=== PATIENT | female | born 1960 | race Caucasian/White ===

== ENCOUNTER 2017-07-03 21:49 | Inpatient (IN) | payer OTHER ==
[~2017-07-03] VITALS: Ht 162.6 cm; Wt 60.6 kg
[2017-07-04 02:02] VITALS: BP 103/60; PULSE 98; TEMP 37.3; O2SAT 95; Ht 162.6 cm; Wt 60.6 kg
[2017-07-04] MEDS ORDERED: BUPR-79 PO (02:10)
[2017-07-04] MEDS ORDERED: SODIUM CHLORIDE 0.9% 1000ML 1,000 ML IV STA (02:21)
[2017-07-04] MEDS ORDERED: MoRPHine SULFATE 2 MG/ML CARP IV PRN (02:30)
[2017-07-04] MEDS ORDERED: ACETAMINOPHEN IV 650 MG in EMPTY BAG 0 ML IV PRN (02:30)
[2017-07-04] MEDS ORDERED: ACETAMINOPHEN 325 MG TAB PO PRN (02:30)
[2017-07-04] MEDS ORDERED: PIPERACILL/TAZOBAC IV 3.375 GM in DEXTROSE 5% 100ML 100 ML IV ONE (02:43)
[2017-07-04] MEDS: KETOROLAC TROMETHAMINE 15 MG/ML VIAL IV PRN ×4 (03:05→23:29)
[2017-07-04 03:14] LABS: BASO % 0.3 %; BASO ABS # 0.04 K/uL (0-0.2); EOS % 0.8 %; HEMATOCRIT 39.5 % (37-47); IG% 0.2 %; LYMPH % 18.1 %; LYMPH ABS # 2.19 K/uL (1.2-3.4); MEAN CELL VOLUME 93.2 fL (80-100); MEAN CORPUSCULAR HEMOGLOBIN 31.6 pg (25-34); MEAN PLATELET VOLUME 10.6 fL (7.4-10.4); MONO % 10.5 %; NEUT % 70.1 %; PLATELET COUNT 245 K/uL (130-400); RED BLOOD COUNT 4.24 M/uL (4.2-5.4); WHITE BLOOD COUNT 12.12 K/uL (4.8-10.8)
--- NOTE | 2017-07-04 03:15 | History and Physical ---
History & Physical Date & Time of Service: Jul 04, 2017 at 02:40 Chief Complaint: Diverticulitis Primary Care Physician: Rohit Hester D.O. History of Present Illness Source: patient, clinic records, hospital records Mrs Michel is a 56 year old female who present as a direct admission from [facility] with a diagnosis of diverticulitis and abdominal pain. She started having abdominal pain 2 weeks prior. She has not eaten significantly for the past 48 hours. She reported having severity 9/10 LLQ pain in the [facility] ER, currently 6/10. She went to her PCP on 16 May and diagnosed clinically with diverticulitis. Due to previously vomiting with cipro and metronidazole she was treated with Keflex. Her abdominal pain did not get better so she presented to the ER [facility]. CT showed extensive active diverticulitis in the sigmoid colon with microperforation and a small amount of free fluid. No localized abscess or generalized pneumoperitoneum seen at this time. CBC showed elevated WBC 12.0. lactic acid was not elevated at 0.8. CMP showed normal electrolytes and Cr 1.1. She was treated with one dose of Zosyn 3.375g. She was transferred to [facility] due to access to surgery. Past Medical/Surgical History Anxiety Hx diverticulitis Past surgical history - hysterectomy Social History Smoking Status: Current Every Day Smoker Smokeless Tobacco Use: No Alcohol Use: occasionally Drug Use: none Immunizations History of Influenza Vaccine: Unknown History of Tetanus Vaccine?: Unknown History of Pneumococcal: Unknown History of Hepatitis B Vaccine: Unknown Multi-Drug Resistant Organisms History of MDRO: No Allergies Coded Allergies: No Known Allergies (Unverified , 07/04/17) Home Medications Miscellaneous Medications Bupropion (Wellbutrin Sr), 150 MG PO Review of Systems Constitutional: + fever, + chills Eyes: No worsening of vision ENT: No hearing loss Respiratory: No cough, No shortness of breath Cardiovascular: No chest pain Abdomen: + pain, No nausea, No vomiting, No diarrhea, No constipation, No GI bleeding Musculoskeletal: No joint pain, No muscle pain Genitourinary - Female: No dysuria, No urinary frequency, No urinary urgency, No urinary incontinence, No urinary retention Psychiatric: No depression symptoms, No anxiety Endocrine: No fatigue Hematologic / Lymphatic: No abnormal bleeding/bruising Integumentary: No rash, No itch Physical Exam Vital Signs Date Time Temp Pulse Resp B/P (MAP) Pulse Ox O2 Delivery O2 Flow Rate FiO2 07/04/17 02:02 37.3 98 103/60 95 Room Air General Appearance: WD/WN, no apparent distress Head: normocephalic, atraumatic Eyes: normal inspection (pupils equal) Neck: supple, no JVD Respiratory/Chest: lungs clear, normal breath sounds, no respiratory distress, no accessory muscle use Cardiovascular: regular rate, rhythm, no JVD, no murmur, normal peripheral pulses Abdomen/GI: normal bowel sounds, soft, + tenderness (mild LLQ pain without guarding or rebound tenderness) Extremities/Musculoskelatal: no calf tenderness, normal capillary refill, no pedal edema 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 (no facial droop), no motor/sensory deficits (grossly), alert, oriented x 3 Skin: normal color, warm/dry, no rash Diagnostics Laboratory Results Na 140, K 3.8, Cl 104, CO2 30, Anion Gap 10, BUN 12, Cr 1.10, BUN/Cr 10.9, Glucose 80, Lactic acid 0.8 Total Bili 1.3 (high), AST,12 ALT 16, ALP 100, Total Protein 7.0, Albumin 3.6, Globulin 3.4, Alb/Luciana 1.1 WBC 12.0 (high), RBC 4.36, Hbg 13.6, Hct 40.1, MCV 92.0, Plt 266 Urine positive for blood (small), protein (trace), WBC, RBC, leukocyte esterase , bacteria, casts, epithelial cells Impression Assessment and Plan 56 year old female with diverticulitis Diverticulitis with microperforations - continue zosyn 3.375g Q6H - stool culture, c. diff - NPO except ice chips - consult surgery in morning - by patient request consult her gastroenterology Dr Clark, to arrange follow up colonoscopy as outpatient - NSS 1L bolus now, then lactated ringers @ 150 MLS/HR - repeat labs - CBC, CMP Anxiety - continue Wellbutrin PO Attending Addendum: I have physically seen and examined this patient, have directed the resident's medical activities, and agree with the H&P as noted above with the following exceptions as noted. The patient is awake, alert and oriented 3, well-developed and well-nourished , normocephalic and atraumatic, lying in bed and in no acute distress. HEENT--PERRL, EOMI, mucous membranes and oropharynx dry. Neck--supple, no JVD or bruits, thyroid normal, trachea midline, no adenopathy. Heart--normal S1 and S2, no extra beats, no murmurs, rubs or gallops. Lungs--clear bilaterally with good air movement, no respiratory distress, no accessory muscle use. Abdomen--decreased bowel sounds. Mildly firm, nontender and nondistended, no hernias or masses, no organomegaly. Extremities--no cyanosis, clubbing or edema. There are good distal pulses b/l. Dermatologic--normal skin turgor, normal color, warm and dry, no abnormal lymph nodes, no rash. Neurologic--cranial nerves II through XII grossly intact. Rheumatologic--normal range of motion. Psychiatric--normal affect. Assessment and Plan: Diverticulitis with microperforation-- Nothing by mouth except ice chips Send stool for culture and C. difficile Zosyn 3.375 mg IV every 6 hours. Famotidine 20 mg IV every 12 hours Zofran 4 mg IV every 6 hours when necessary Consult general surgery to follow. Consult Dr. Clark from gastroenterology and she seen in the past for colonoscopy. IV fluids. Serial CBC and chemistry profile. Anxiety-- Continue Wellbutrin by mouth have available IV Ativan when necessary Level of Care Telemetry Advanced Directives Existing Advance Directive: No Existing Living Will: Yes Existing Power of Nurse Discharge: No Resuscitation Status FULL RESUSCITATION VTE Prophylaxis VTE Risk Assessment Done? Y/N: Yes Risk Level: Moderate Given or contraindicated: T.E.D. Stockings, SCD's, Contraindicated (pending surgical consult) Social Service Consult None Apply Additional Copies To ROHIT HESTER D.O.
[2017-07-04 03:18] LABS: COMPLETE YES; MEAN CORPUSCULAR HGB CONC 33.9 g/dl (32-36)
[2017-07-04 03:37] LABS: BUN/CREATININE RATIO 10.3 (10-20); CALCIUM 8.7 mg/dl (8.5-10.1); CREATININE 1.08 mg/dl (0.60-1.20); POTASSIUM 3.5 mmol/L (3.5-5.1)
[2017-07-04] MEDS ORDERED: PIPERACILL/TAZOBAC CONSULT ACTIVE PRN (04:15)
[2017-07-04 04:26] VITALS: BP 96/54; PULSE 105; TEMP 36.7; O2SAT 96
[2017-07-04] MEDS: LACTATED RINGER'S 1000ML 1,000 ML IV SCH ×4 (04:33→21:17)
[2017-07-04] MEDS ORDERED: FAMOTIDINE IV INJ 20 MG in DEXTROSE 5% 100ML 100 ML IV SCH (06:30)
[2017-07-04] MEDS: FAMOTIDINE IV INJ 20 MG in SYRINGE 3 ML IV SCH ×2 (06:39→18:26)
[2017-07-04] MEDS: DEXTROSE 50% 50 ML SYR IV PRN ×2 (07:10→19:13)
[2017-07-04 07:44] VITALS: BP 111/54; PULSE 91; TEMP 36.8; O2SAT 96
[2017-07-04] MEDS: PIPERACILL/TAZOBAC IV 3.375 GM in DEXTROSE 5% 100ML 100 ML IV SCH ×3 (08:39→23:32)
[2017-07-04] MEDS: BuPROPion SR 150 MG TABCR PO SCH (08:39)
--- NOTE | 2017-07-04 10:34 | Medical Consult ---
Consultation Date of Consultation: Jul 04, 2017. Attending Physician: Jean Chavez D.O. Reason for Consultation: diverticulitis w/ contained perf History of Present Illness pt transferred from [facility] with acute diverticulitis with contained perf - no abscess. has had mult episodes in past , does not tolerate po Cipro/ Flagyl well. Had CT (report here only)- no film- at [facility] No recent colonoscopy wbc- 12,000 pain has improved Social History Smoking Status: Current Every Day Smoker Smokeless Tobacco Use: No Alcohol Use: occasionally Drug Use: none Allergies Coded Allergies: No Known Allergies (Unverified , 07/04/17) Current Inpatient Medications Current Inpatient Medications Medications (Trade) Dose Ordered Sig/Melvina Route Start Time Stop Time Status Last Admin Dose Admin Acetaminophen (Tylenol Tab) 650 mg Q4H PRN PO 07/04/17 02:30 08/03/17 02:29 Ondansetron HCl (Zofran Inj) 4 mg Q6H PRN IV 07/04/17 02:30 08/03/17 02:29 Bupropion HCl (Wellbutrin-Sr Tab) 150 mg DAILY PO 07/04/17 09:00 08/03/17 08:59 07/04/17 08:39 150 MG Acetaminophen 650 mg/Empty Bag 65 ml @ 260 mls/hr Q6H PRN IV 07/04/17 02:30 08/03/17 02:29 Morphine Sulfate (MoRPHine SULFATE INJ) 2 mg Q2H PRN IV 07/04/17 02:30 07/18/17 02:29 Ketorolac Tromethamine (Toradol Inj) 15 mg Q6H PRN IV 07/04/17 02:30 07/09/17 02:29 07/04/17 10:03 15 MG Piperacillin Sod/ Tazobactam Sod 3.375 gm/Dextrose 115 ml @ 28 mls/hr Q8H IV 07/04/17 08:00 07/14/17 07:59 07/04/17 08:39 28 MLS/HR Lactated Ringer's 1,000 ml @ 150 mls/hr Q6H40M IV 07/04/17 03:30 08/03/17 03:29 07/04/17 04:33 150 MLS/HR Piperacillin Sod/ Tazobactam Sod (Consult) 1 ea UD PRN N/A 07/04/17 04:15 08/03/17 04:14 Famotidine 20 mg/ Syringe 5 ml @ 2.5 mls/min Q12H IV 07/04/17 06:30 08/03/17 06:29 07/04/17 06:39 2.5 MLS/MIN Dextrose (Dextrose 50% 50ML Syringe) 25-50ML OF 50% DW IV FOR... UD PRN IV 07/04/17 07:00 08/03/17 06:59 07/04/17 07:10 25 ML Review of Systems Constitutional: No fever, No chills Respiratory: No cough, No sputum, No shortness of breath Cardiovascular: No chest pain Abdomen: + pain, No vomiting Genitourinary - Female: No dysuria Integumentary: No rash Physical Exam Date Time Temp Pulse Resp B/P (MAP) Pulse Ox O2 Delivery O2 Flow Rate FiO2 07/04/17 08:00 Room Air 07/04/17 07:44 36.8 91 18 111/54 (73) 96 Room Air 07/04/17 04:26 36.7 105 17 96/54 (68) 96 Room Air 07/04/17 04:00 Room Air 07/04/17 02:02 37.3 98 103/60 95 Room Air General Appearance: no apparent distress Head: normocephalic, atraumatic ENT: hearing grossly normal Neck: supple Respiratory/Chest: no respiratory distress Abdomen/GI: soft, + tenderness (LLQ tenderness, has bowel sounds) Extremities/Musculoskelatal: normal inspection Neurologic/Psych: alert Skin: warm/dry Laboratory Results Last 24 Hours Test 07/04/17 03:02 07/04/17 07:18 White Blood Count 12.12 K/uL Red Blood Count 4.24 M/uL Hemoglobin 13.4 g/dL Hematocrit 39.5 % Mean Corpuscular Volume 93.2 fL Mean Corpuscular Hemoglobin 31.6 pg Mean Corpuscular Hemoglobin Concent 33.9 g/dl Platelet Count 245 K/uL Mean Platelet Volume 10.6 fL Neutrophils (%) (Auto) 70.1 % Lymphocytes (%) (Auto) 18.1 % Monocytes (%) (Auto) 10.5 % Eosinophils (%) (Auto) 0.8 % Basophils (%) (Auto) 0.3 % Neutrophils # (Auto) 8.49 K/uL Lymphocytes # (Auto) 2.19 K/uL Monocytes # (Auto) 1.27 K/uL Eosinophils # (Auto) 0.10 K/uL Basophils # (Auto) 0.04 K/uL RDW Standard Deviation 45.5 fL RDW Coefficient of Variation 13.4 % Immature Granulocyte % (Auto) 0.2 % Immature Granulocyte # (Auto) 0.03 K/uL Sodium Level 141 mmol/L Potassium Level 3.5 mmol/L Chloride Level 105 mmol/L Carbon Dioxide Level 25 mmol/L Anion Gap 11.0 mmol/L Blood Urea Nitrogen 11 mg/dl Creatinine 1.08 mg/dl Est Creatinine Clear Calc Drug Dose 50.3 ml/min Estimated GFR () 66.5 Estimated GFR (Non- 57.3 BUN/Creatinine Ratio 10.3 Random Glucose 63 mg/dl Calcium Level 8.7 mg/dl Total Bilirubin 1.5 mg/dl Aspartate Amino Transf (AST/SGOT) 9 U/L Alanine Aminotransferase (ALT/SGPT) 14 U/L Alkaline Phosphatase 95 U/L Total Protein 6.8 gm/dl Albumin 3.4 gm/dl Globulin 3.4 gm/dl Albumin/Globulin Ratio 1.0 Bedside Glucose 145 mg/dl Assessment & Plan 07/04/17- adm with acute diverticulitis w/ contained perf, no abscess- cont ice only for now and IV atbx. Repeat CT at some point 2-3 days- try to obtain other film. May consider picc line for IV atbx as outpt as she doesn't tolerate po well. Probably best-4-5 days IV atbx in hospital.
--- NOTE | 2017-07-04 10:35 | Gastrointestinal Consultation ---
Gastrointestinal Consultation Date of Consultation: Jul 04, 2017 Attending Physician: Grady Chavez Consulting Physician: Jayme Clark Reason for Consultation: Diverticulitis History of Present Illness Patient is a 56 year old female who was transferred from [facility] for continued management of diverticulitis. She had been c/o abd pain across her lower abd since 06/16, suspected to have diverticulitis and was given Cipro/ Flagyl by PCP. Her pain didn't improve and also was having n/v from the antibx ( later switched to Keflex), she went to [facility]. CT abd/pelvis showed acute sigmoid diverticulitis w microperforation and small amt of free fluid, no abscess seen. She was transferred to [facility] as she needed Surgery team support. Labs showed WBC 12, otherwise normal CBC, CMP. LFT did showed mild Tbili elevation of 1.2, normal transaminases otherwise. She is made NPO except sips and chips. She has been started on Zosyn IV, and LR IVF. Pt reports about 6 episodes of diverticulitis since around 2009. Less than 3 episodes in last year. Last colonoscopy and f/u by Dr. Clark in 2011, + diverticulosis and adenomatous polyps. She had been taking probiotics, fiber and avoiding constipation. She is afebrile overnight, abd pain is improved, no n/v. Past Medical/Surgical History Past Medical History: See above Past Surgical History: Hysterectomy Appendectomy Family History Unrelated to admission Social History Smoking Status: Current Every Day Smoker Alcohol Use: none Drug Use: none Allergies Coded Allergies: No Known Allergies (Unverified , 07/04/17) Current Medications Home Meds and Scripts Medications Dose Route/Sig Max Daily Dose Days Date Category Wellbutrin Sr (Bupropion HCl) 150 Mg Ertab 150 Mg PO 07/04/17 Reported Review of Systems Constitutional: No fever, No chills Respiratory: No cough, No shortness of breath Cardiac: No chest pain Abdomen: + pain (across lower abd ), No nausea, No vomiting, No constipation, No GI bleeding Physical Exam Date Time Temp Pulse Resp B/P (MAP) Pulse Ox O2 Delivery O2 Flow Rate FiO2 07/04/17 08:00 Room Air 07/04/17 07:44 36.8 91 18 111/54 (73) 96 Room Air 07/04/17 04:26 36.7 105 17 96/54 (68) 96 Room Air 07/04/17 04:00 Room Air 07/04/17 02:02 37.3 98 103/60 95 Room Air General Appearance: WD/WN, no apparent distress Eyes: normal inspection, PERRL, EOMI Neck: supple, no JVD, trachea midline Respiratory/Chest: normal breath sounds, no respiratory distress, no accessory muscle use Cardiovascular: regular rate, rhythm, no gallop, no murmur Abdomen: normal bowel sounds, soft, + tenderness (across lower abd ) Extremities: normal inspection, no pedal edema, no calf tenderness Neurologic/Psych: alert, normal mood/affect, oriented x 3 Skin: normal color, no jaundice, no rash Laboratory Results Last 24 Hours Test 07/04/17 03:02 07/04/17 07:18 White Blood Count 12.12 K/uL Red Blood Count 4.24 M/uL Hemoglobin 13.4 g/dL Hematocrit 39.5 % Mean Corpuscular Volume 93.2 fL Mean Corpuscular Hemoglobin 31.6 pg Mean Corpuscular Hemoglobin Concent 33.9 g/dl Platelet Count 245 K/uL Mean Platelet Volume 10.6 fL Neutrophils (%) (Auto) 70.1 % Lymphocytes (%) (Auto) 18.1 % Monocytes (%) (Auto) 10.5 % Eosinophils (%) (Auto) 0.8 % Basophils (%) (Auto) 0.3 % Neutrophils # (Auto) 8.49 K/uL Lymphocytes # (Auto) 2.19 K/uL Monocytes # (Auto) 1.27 K/uL Eosinophils # (Auto) 0.10 K/uL Basophils # (Auto) 0.04 K/uL RDW Standard Deviation 45.5 fL RDW Coefficient of Variation 13.4 % Immature Granulocyte % (Auto) 0.2 % Immature Granulocyte # (Auto) 0.03 K/uL Sodium Level 141 mmol/L Potassium Level 3.5 mmol/L Chloride Level 105 mmol/L Carbon Dioxide Level 25 mmol/L Anion Gap 11.0 mmol/L Blood Urea Nitrogen 11 mg/dl Creatinine 1.08 mg/dl Est Creatinine Clear Calc Drug Dose 50.3 ml/min Estimated GFR () 66.5 Estimated GFR (Non- 57.3 BUN/Creatinine Ratio 10.3 Random Glucose 63 mg/dl Calcium Level 8.7 mg/dl Total Bilirubin 1.5 mg/dl Aspartate Amino Transf (AST/SGOT) 9 U/L Alanine Aminotransferase (ALT/SGPT) 14 U/L Alkaline Phosphatase 95 U/L Total Protein 6.8 gm/dl Albumin 3.4 gm/dl Globulin 3.4 gm/dl Albumin/Globulin Ratio 1.0 Bedside Glucose 145 mg/dl Impression Patient is a 56 year old female transferred from [facility] for sigmoid diverticulitis with evidence of microperforation but no abscess on CT scan. WBC mildly up at 12K. Currently on Zosyn IV. Plan - Bowel rest, IVF support - Surgery consulted - May repeat CT scan in about 2 days time to re-eval microperforation. - GI will watch peripherally, call if new questions/concerns arise. - I made pt aware that [facility] doesn't accept [facility] insurance. Thus she will need to pay out of pocket costs if she chooses to still follow up with [facility] upon her DC and for future repeat colonoscopy. She has the options to f/u with [facility] or [facility] which accept her insurance. She would like to stay with [facility]. I have personally seen and examined patient with MOI Posey. Her note reflects my exam and findings. I agree with her impression and plan. She has had several bouts of diverticulitis and should consider surgical options once she is over this acute bout given her high risk of recurrent disease. This was discussed with daughter at bedside as well. Jayme Clark M.D.
[2017-07-04 11:36] VITALS: BP 106/63; PULSE 86; TEMP 36.6; O2SAT 96
[2017-07-04 15:55] VITALS: BP 117/72; PULSE 85; TEMP 36.4; O2SAT 97
[2017-07-04] MEDS: ONDANSETRON INJ 2 MG/ML 2 ML VIAL IV PRN (17:28)
[2017-07-04 23:45] VITALS: BP 104/66; PULSE 82; TEMP 36.8; O2SAT 97
[2017-07-05] VITALS: O2SAT 95
[2017-07-05] MEDS: DEXTROSE 5% 1000ML 1,000 ML IV SCH ×3 (00:40→16:30)
[2017-07-05] MEDS: FAMOTIDINE IV INJ 20 MG in SYRINGE 3 ML IV SCH (06:10)
[2017-07-05] MEDS ORDERED: MoRPHine SULFATE 2 MG/ML CARP IV PRN ×2 (06:15)
--- NOTE | 2017-07-05 06:16 | Surgery Progress Note ---
Surgery Progress Note Date of Service Jul 05, 2017. Subjective feeling better, wants less pain meds afeb, labs pending Objective Vital Signs: Date Time Temp Pulse Resp B/P (MAP) Pulse Ox O2 Delivery O2 Flow Rate FiO2 07/05/17 00:00 95 Room Air 07/04/17 23:45 36.8 82 18 104/66 (79) 97 Room Air 07/04/17 16:00 Room Air 07/04/17 15:55 36.4 85 18 117/72 (87) 97 Room Air 07/04/17 11:36 36.6 86 16 106/63 (77) 96 Room Air 07/04/17 08:00 Room Air 07/04/17 07:44 36.8 91 18 111/54 (73) 96 Room Air General Appearance: no apparent distress Respiratory/Chest: no respiratory distress Abdomen: normal bowel sounds, soft Laboratory Results: Results Past 24 Hours Test 07/04/17 06:56 07/04/17 07:18 07/04/17 11:25 07/04/17 18:26 Range/Units Bedside Glucose 58 145 75 64 70-90 mg/dl Test 07/04/17 19:28 07/04/17 23:55 07/05/17 05:36 07/05/17 05:57 Range/Units Bedside Glucose 163 70 94 70-90 mg/dl Assessment & Plan 07/05/17- improved- do not have film to assess severity of disease- will order CT this am. Cont limited po and IV atbx. may have sips. Will ask ID for suggestions re atbx- depending on severity of perf- may consider picc/ home IV atbx- pt stable
[2017-07-05] MEDS ORDERED: OPTIRAY 320 IV PRN (06:30)
[2017-07-05 06:55] LABS: HEMATOCRIT 34.2 % (37-47); MEAN CELL VOLUME 92.2 fL (80-100); MEAN CORPUSCULAR HEMOGLOBIN 31.8 pg (25-34); MEAN CORPUSCULAR HGB CONC 34.5 g/dl (32-36); MEAN PLATELET VOLUME 10.2 fL (7.4-10.4); PLATELET COUNT 219 K/uL (130-400); RED BLOOD COUNT 3.71 M/uL (4.2-5.4); WHITE BLOOD COUNT 7.07 K/uL (4.8-10.8)
[2017-07-05 07:27] LABS: BUN/CREATININE RATIO 7.5 (10-20); CALCIUM 8.5 mg/dl (8.5-10.1); CREATININE 0.84 mg/dl (0.60-1.20); POTASSIUM 3.4 mmol/L (3.5-5.1)
[2017-07-05 07:51] VITALS: BP 110/61; PULSE 75; TEMP 36.6; O2SAT 94
[2017-07-05] MEDS ORDERED: POTASSIUM CHLORIDE 10 MEQ TABCR PO STA (08:41)
[2017-07-05] MEDS: BuPROPion SR 150 MG TABCR PO SCH (08:45)
[2017-07-05] MEDS: PIPERACILL/TAZOBAC IV 3.375 GM in DEXTROSE 5% 100ML 100 ML IV SCH ×3 (08:48→23:56)
[2017-07-05 10:17] VITALS: O2SAT 94
--- NOTE | 2017-07-05 10:38 | DIAGNOSTIC IMAGING REPORT ---
ADDENDUM Addendum: Comparison was made to prior outside CT of July 03, 2017. No significant change is noted. Sigmoid diverticulosis with sigmoid colon wall thickening and a small amount of adjacent fluid is unchanged. The findings suggest acute diverticulitis. Electronically signed by: Robert Small M.D. 07/07/2017 3:56 PM Dictated Date/Time: 07/07/2017 3:[address] OF THE ABDOMEN AND PELVIS WITH CONTRAST CLINICAL HISTORY: Diverticulitis. COMPARISON STUDY: None. TECHNIQUE: Following IV administration of 94 mL of Optiray-320, axial images of the abdomen and pelvis were obtained from the lung bases to the proximal femurs. Images were reviewed in the axial, sagittal, and coronal planes. IV contrast was administered without complication. A dose lowering technique was utilized adhering to the principles of ALARA. CT DOSE: 267.77 mGy.cm FINDINGS: No pneumatosis, free air or portal venous gas is present. Several hepatic cysts are noted. There are several subcentimeter renal lesions which are too small to characterize. The spleen, adrenal glands and pancreas are normal. There is no biliary or pancreatic ductal dilatation. There is mild gallbladder distention without pericholecystic infiltration. No enlarged abdominal or pelvic lymph nodes are present. The appendix is not visualized. There is sigmoid diverticulosis. There is mild infiltration adjacent to the proximal to mid sigmoid colon with a small amount of fluid along the posterior aspect of the mid sigmoid colon. No rim enhancement of this fluid is noted to strongly suggest an abscess at this time. There is no bowel obstruction. No suspicious osseous lesions are identified. Major vasculature of the abdomen and pelvis is patent. IMPRESSION: Sigmoid diverticulosis with mild wall thickening and infiltration adjacent to the proximal to mid sigmoid colon consistent with acute diverticulitis. No free air or abscess. Small amount of fluid along the posterior aspect of the colon without rim enhancement to suggest an abscess at this time. Electronically signed by: Robert Small M.D. 07/05/2017 10:37 AM Dictated Date/Time: 07/05/2017 10:27 AM
--- NOTE | 2017-07-05 11:07 | Medical Consult ---
Consultation Date of Consultation: Jul 05, 2017. Attending Physician: Jean Chavez D.O. Reason for Consultation: Antibiotic choices History of Present Illness 56-year-old female with history of multiple episodes of diverticulitis in the past, was admitted to the hospital with progressively worsening left lower quadrant pain over 2 week period of time. She was found to have evidence of recurrent diverticulitis with microperforation. She was transferred here for further management. Patient currently being treated with IV Zosyn and showing clinical improvement. She has remained afebrile. Repeat CT scan of the abdomen is pending. Blood cultures have been no growth to date. Has been tolerating antibiotic without apparent difficulty. Past Medical/Surgical History Past medical history: Diverticulitis, anxiety Past surgical history: Hysterectomy Family History Noncontributory Social History Smoking Status: Current Every Day Smoker Smokeless Tobacco Use: No Alcohol Use: occasionally Drug Use: none Allergies Coded Allergies: No Known Allergies (Unverified , 07/04/17) Current Inpatient Medications Current Inpatient Medications Medications (Trade) Dose Ordered Sig/Melvina Route Start Time Stop Time Status Last Admin Dose Admin Acetaminophen (Tylenol Tab) 650 mg Q4H PRN PO 07/04/17 02:30 08/03/17 02:29 07/05/17 08:21 650 MG Ondansetron HCl (Zofran Inj) 4 mg Q6H PRN IV 07/04/17 02:30 08/03/17 02:29 07/04/17 17:28 4 MG Bupropion HCl (Wellbutrin-Sr Tab) 150 mg DAILY PO 07/04/17 09:00 08/03/17 08:59 07/05/17 08:45 150 MG Acetaminophen 650 mg/Empty Bag 65 ml @ 260 mls/hr Q6H PRN IV 07/04/17 02:30 08/03/17 02:29 Ketorolac Tromethamine (Toradol Inj) 15 mg Q6H PRN IV 07/04/17 02:30 07/09/17 02:29 07/04/17 23:29 15 MG Piperacillin Sod/ Tazobactam Sod 3.375 gm/Dextrose 115 ml @ 28 mls/hr Q8H IV 07/04/17 08:00 07/14/17 07:59 07/05/17 08:48 28 MLS/HR Piperacillin Sod/ Tazobactam Sod (Consult) 1 ea UD PRN N/A 07/04/17 04:15 08/03/17 04:14 Famotidine 20 mg/ Syringe 5 ml @ 2.5 mls/min Q12H IV 07/04/17 06:30 08/03/17 06:29 07/05/17 06:10 2.5 MLS/MIN Dextrose (Dextrose 50% 50ML Syringe) 25-50ML OF 50% DW IV FOR... UD PRN IV 07/04/17 07:00 08/03/17 06:59 07/04/17 19:13 25 ML Dextrose 1,000 ml @ 125 mls/hr Q8H IV 07/05/17 00:30 08/04/17 00:29 07/05/17 08:48 125 MLS/HR Morphine Sulfate (MoRPHine SULFATE INJ) 2 mg Q4H PRN IV 07/05/17 06:15 07/19/17 06:14 Morphine Sulfate (MoRPHine SULFATE INJ) 1 mg Q3HWA PRN IV 07/05/17 06:15 07/19/17 06:14 Ioversol (Optiray 320) 100 ml UD PRN IV 07/05/17 06:30 07/09/17 06:29 Review of Systems Systems were reviewed and are negative except as per HPI Physical Exam Date Time Temp Pulse Resp B/P (MAP) Pulse Ox O2 Delivery O2 Flow Rate FiO2 07/05/17 10:17 94 Room Air 07/05/17 07:51 36.6 75 16 110/61 (77) 94 Room Air 07/05/17 00:00 95 Room Air 07/04/17 23:45 36.8 82 18 104/66 (79) 97 Room Air 07/04/17 16:00 Room Air 07/04/17 15:55 36.4 85 18 117/72 (87) 97 Room Air 07/04/17 11:36 36.6 86 16 106/63 (77) 96 Room Air General Appearance: WD/WN, no apparent distress Head: normocephalic, atraumatic Eyes: normal inspection, PERRL, sclerae normal ENT: normal ENT inspection, hearing grossly normal, pharynx normal Neck: supple, no adenopathy, thyroid normal, trachea midline Respiratory/Chest: chest non-tender, lungs clear, normal breath sounds, no respiratory distress Cardiovascular: regular rate, rhythm, no gallop, no murmur Abdomen/GI: normal bowel sounds, soft, no organomegaly, + tenderness (Mild left lower quadrant) Back: normal inspection, no CVA tenderness Extremities/Musculoskelatal: no calf tenderness, non-tender Neurologic/Psych: alert, normal mood/affect, oriented x 3 Skin: normal color, warm/dry, no rash Lymphatic: no adenopathy Laboratory Results RUN DATE: 07/05/17 [facility] LAB PAGE 1 RUN TIME: 708 Specimen Inquiry PATIENT: DUYEN BOURGEOIS LOC: C.MS2W U # : [id number] AGE/SX: 56/F ROOM: W261 REG : 07/04/[address]: Jean Chavez D.O : 1960 BED: 1 DIS : STATUS: ADM IN TLOC: SPEC #: [id number] GRADY: 07/04/17 STATUS: RES REQ #: [id number] RECD: 07/04/[address]: Song Wade MD SOURCE: BLOOD ENTR: 07/04/17 [facility] DR: Chiki Valle M.D. [facility] PILY [facility] D.[facility]., Rick D M.D. Schneider, Donald S., MD ORDERED: BLOOD CULTURE Procedure Result Verified Site BLD CULT Preliminary 07/05/17 NO GROWTH TO DATE. Last 24 Hours Test 07/04/17 11:25 07/04/17 18:26 07/04/17 19:28 07/04/17 23:55 Bedside Glucose 75 mg/dl 64 mg/dl 163 mg/dl 70 mg/dl Test 07/05/17 05:36 07/05/17 06:24 Bedside Glucose 94 mg/dl White Blood Count 7.07 K/uL Red Blood Count 3.71 M/uL Hemoglobin 11.8 g/dL Hematocrit 34.2 % Mean Corpuscular Volume 92.2 fL Mean Corpuscular Hemoglobin 31.8 pg Mean Corpuscular Hemoglobin Concent 34.5 g/dl RDW Standard Deviation 43.5 fL RDW Coefficient of Variation 12.8 % Platelet Count 219 K/uL Mean Platelet Volume 10.2 fL Sodium Level 144 mmol/L Potassium Level 3.4 mmol/L Chloride Level 108 mmol/L Carbon Dioxide Level 30 mmol/L Anion Gap 6.0 mmol/L Blood Urea Nitrogen 6 mg/dl Creatinine 0.84 mg/dl Est Creatinine Clear Calc Drug Dose 64.6 ml/min Estimated GFR () 90.0 Estimated GFR (Non- 77.7 BUN/Creatinine Ratio 7.5 Random Glucose 87 mg/dl Calcium Level 8.5 mg/dl Assessment & Plan Recurrent sigmoid diverticulitis, responding to IV antibiotics. Given multiple recurrences, would think that surgical resection would be appropriate in the future. I would recommend continuing IV antibiotics for at least 7-10 day course total, but could changed to IV ertapenem to allow easier outpatient therapy. Will discuss with all involved. Will follow.
[2017-07-05] MEDS: ONDANSETRON INJ 2 MG/ML 2 ML VIAL IV PRN (14:00)
--- NOTE | 2017-07-05 14:44 | Progress Note ---
Subjective Date of Service: Jul 05, 2017. Subjective Pt evaluation today including: conversation w/ patient, physical exam, chart review, lab review, review of studies, review of inpatient medication list Pt reports pain in left lower quadrant improved 3/10 No nausea or vomiting Currently NPO at this time No acute events overnight Review of Systems Constitutional: No fever, No chills, No sweats, No weakness Eyes: No worsening of vision, No eye pain, No redness, No discharge Respiratory: No cough, No sputum, No wheezing, No shortness of breath, No dyspnea on exertion Cardiac: No chest pain, No orthopnea, No PND, No edema, No claudication Abdomen: No pain, No nausea, No vomiting, No diarrhea, No constipation Musculoskeletal: No joint pain, No muscle pain, No swelling, No calf pain Female : No dysuria, No urinary frequency, No hematuria, No incontinence Neurologic: No memory loss, No paralysis, No weakness, No numbness/tingling Psychiatric: No depression symptoms, No anhedonism, No anxiety, No insomnia Endo: No fatigue, No excessive thirst, No excessive urination Skin: No rash, No itch Objective Vital Signs Date Time Temp Pulse Resp B/P (MAP) Pulse Ox O2 Delivery O2 Flow Rate FiO2 07/05/17 10:17 94 Room Air 07/05/17 07:51 36.6 75 16 110/61 (77) 94 Room Air 07/05/17 00:00 95 Room Air 07/04/17 23:45 36.8 82 18 104/66 (79) 97 Room Air 07/04/17 16:00 Room Air 07/04/17 15:55 36.4 85 18 117/72 (87) 97 Room Air Physical Exam General Appearance: WD/WN, no apparent distress Eyes: normal inspection, PERRL, EOMI, sclerae normal Neck: supple, no adenopathy, thyroid normal, no JVD Respiratory/Chest: chest non-tender, lungs clear, normal breath sounds, no respiratory distress Cardiovascular: no edema, no gallop, no JVD, no murmur Abdomen: normal bowel sounds, soft, no organomegaly, + tenderness (left lower quadrant ) Extremities: normal range of motion, non-tender, normal inspection, no pedal edema Neurologic/Psychiatric: no motor/sensory deficits, alert, normal mood/affect, oriented x 3 Skin: normal color, warm/dry, no rash Lymphatic: no adenopathy Laboratory Results Last 24 Hours Test 07/04/17 18:26 07/04/17 19:28 07/04/17 23:55 07/05/17 05:36 Bedside Glucose 64 mg/dl 163 mg/dl 70 mg/dl 94 mg/dl Test 07/05/17 06:24 White Blood Count 7.07 K/uL Red Blood Count 3.71 M/uL Hemoglobin 11.8 g/dL Hematocrit 34.2 % Mean Corpuscular Volume 92.2 fL Mean Corpuscular Hemoglobin 31.8 pg Mean Corpuscular Hemoglobin Concent 34.5 g/dl RDW Standard Deviation 43.5 fL RDW Coefficient of Variation 12.8 % Platelet Count 219 K/uL Mean Platelet Volume 10.2 fL Sodium Level 144 mmol/L Potassium Level 3.4 mmol/L Chloride Level 108 mmol/L Carbon Dioxide Level 30 mmol/L Anion Gap 6.0 mmol/L Blood Urea Nitrogen 6 mg/dl Creatinine 0.84 mg/dl Est Creatinine Clear Calc Drug Dose 64.6 ml/min Estimated GFR () 90.0 Estimated GFR (Non- 77.7 BUN/Creatinine Ratio 7.5 Random Glucose 87 mg/dl Calcium Level 8.5 mg/dl Assessment and Plan 56 year old female with diverticulitis Diverticulitis with microperforations - continue zosyn 3.375g Q6H - Blood cx NGTD - NPO except ice chips - consult surgery, CT abd pelvis 07/05 no evidence of free air, likely small fluid collection, ?abscess - by patient request consult her gastroenterology Dr Clark, to arrange follow up colonoscopy as outpatient - Cont IVF - repeat labs - CBC, CMP, no leukocytosis or fevers noted Anxiety - continue Wellbutrin PO Hypokalemia - Replace PRN
[2017-07-05 15:17] VITALS: BP 116/76; PULSE 72; TEMP 36.4; O2SAT 98
[2017-07-05 18:00] VITALS: O2SAT 98
[2017-07-05] MEDS: FAMOTIDINE 20 MG TAB PO SCH (19:35)
[2017-07-05] MEDS: KETOROLAC TROMETHAMINE 15 MG/ML VIAL IV PRN (19:36)
[2017-07-05 23:30] VITALS: BP 99/62; PULSE 70; TEMP 36.7; O2SAT 99
[2017-07-06] MEDS: DEXTROSE 5% 1000ML 1,000 ML IV SCH ×2 (00:01→07:53)
--- NOTE | 2017-07-06 06:44 | Surgery Progress Note ---
Surgery Progress Note Date of Service Jul 06, 2017. Subjective feels ok, some mild pain Objective Vital Signs: Date Time Temp Pulse Resp B/P (MAP) Pulse Ox O2 Delivery O2 Flow Rate FiO2 07/06/17 00:00 Room Air 07/05/17 23:30 36.7 70 16 99/62 (74) 99 Room Air 07/05/17 20:00 Room Air 07/05/17 18:00 98 Room Air 07/05/17 15:17 36.4 72 18 116/76 (89) 98 Room Air 07/05/17 10:17 94 Room Air 07/05/17 07:51 36.6 75 16 110/61 (77) 94 Room Air General Appearance: no apparent distress Respiratory/Chest: no respiratory distress Abdomen: soft Laboratory Results: Results Past 24 Hours Test 07/05/17 11:35 07/06/17 00:23 07/06/17 06:02 Range/Units Bedside Glucose 119 129 114 70-90 mg/dl Assessment & Plan 07/06/17- no acute chgs- will try clear liquids- adv very slowly. picc ordered, consent signed- IV atbx in hospital 2-3 more days then at home ,probably 2 weeks total- colonoscopy 4-6 weeks should have colectomy in future 07/05/17- improved- do not have film to assess severity of disease- will order CT this am. Cont limited po and IV atbx. may have sips. Will ask ID for suggestions re atbx- depending on severity of perf- may consider picc/ home IV atbx- pt stable 07/05/17- improved- do not have film to assess severity of disease- will order CT this am. Cont limited po and IV atbx. may have sips. Will ask ID for suggestions re atbx- depending on severity of perf- may consider picc/ home IV atbx- pt stable
[2017-07-06] MEDS ORDERED: LORAZEPAM INJ 0.5 MG in SYRINGE 0.25 ML IV PRN (06:45)
[2017-07-06 06:55] VITALS: BP 114/76; PULSE 65; TEMP 36.1; O2SAT 97
[2017-07-06] MEDS: BuPROPion SR 150 MG TABCR PO SCH (07:50)
[2017-07-06] MEDS: FAMOTIDINE 20 MG TAB PO SCH ×2 (07:50→21:16)
[2017-07-06] MEDS: PIPERACILL/TAZOBAC IV 3.375 GM in DEXTROSE 5% 100ML 100 ML IV SCH (07:53)
[2017-07-06 10:00] VITALS: O2SAT 97
--- NOTE | 2017-07-06 13:24 | Progress Note ---
Subjective Date of Service: Jul 06, 2017. Subjective Pt evaluation today including: conversation w/ patient, conversation w/ family Pt is feeling overall much improved. She had her PICC placed earlier today and did well with that. She has not had abd pain today. She did have mild nausea. She did a few bites of clears and no issues, but her appetite is overall low. Has been OOB and walking without issue. Pt denies fever, SOB, chest pain, v/c /d, LE pain or swelling. Pt is concerned regarding her probiotic use. She states that she was off of her probiotics for about a month after running out and not making the time to replace them. She states when she has been off of probiotics in the past, this is when she is has had GI issues. She asked surgery about this earlier today and was told this would cause a fungal infection in her PICC if resumed. She is concerned that being off of the probiotics is what caused her diverticulitis flare in general, but is even more concerned to not have a probiotic during the use of prolonged abx due to risk of cdiff and with her other abd issues. Review of Systems All Other Systems: Reviewed and Negative Objective Vital Signs Date Time Temp Pulse Resp B/P (MAP) Pulse Ox O2 Delivery O2 Flow Rate FiO2 07/06/17 10:00 97 Room Air 07/06/17 06:55 36.1 65 18 114/76 (89) 97 Room Air 07/06/17 00:00 Room Air 07/05/17 23:30 36.7 70 16 99/62 (74) 99 Room Air 07/05/17 20:00 Room Air 07/05/17 18:00 98 Room Air 07/05/17 15:17 36.4 72 18 116/76 (89) 98 Room Air Physical Exam General Appearance: WD/WN, no apparent distress Eyes: normal inspection, EOMI ENT: hearing grossly normal Neck: supple Respiratory/Chest: normal breath sounds, no respiratory distress Cardiovascular: regular rate, rhythm, no edema Abdomen: non tender, soft Extremities: non-tender, no pedal edema Neurologic/Psychiatric: alert, normal mood/affect, oriented x 3 Skin: normal color, warm/dry Laboratory Results Last 24 Hours Test 07/06/17 00:23 07/06/17 06:02 Bedside Glucose 129 mg/dl 114 mg/dl Assessment and Plan 56 year old female with diverticulitis Diverticulitis with microperforations - zosyn 3.375g Q6H -> ertapenem for ease of dosing on d/c, planning for minimum 7-10days per ID PICC placed 07/06 - Blood cx NGTD - Attempting clears today and advancing slowly - consult surgery, CT abd pelvis 07/05 no evidence of free air, likely small fluid collection, ?abscess - by patient request consult her gastroenterology Dr Clark, to arrange follow up colonoscopy as outpatient - Cont IVF - repeat labs - CBC, CMP, no leukocytosis or fevers noted Adviced pt that she should not take S boullardi for concern regarding PICC fungal infections, however other probiotics are safe in this situation and would likely benefit pt. Will discuss with surgery Anxiety - continue Wellbutrin PO Hypokalemia - Replace PRN
[2017-07-06] MEDS: ERTAPENEM IV 1 GM in SODIUM CHLOR 0.9% AD-VAN 50ML 50 ML IV SCH (13:57)
[2017-07-06 15:00] VITALS: BP 98/64; PULSE 79; TEMP 36.6; O2SAT 98
[2017-07-06 15:30] VITALS: O2SAT 98
[2017-07-06] MEDS ORDERED: NURSING VERBAL MED ORDER ONE (15:30)
[2017-07-06] MEDS: ONDANSETRON INJ 2 MG/ML 2 ML VIAL IV PRN (15:36)
[2017-07-07 00:03] VITALS: BP 109/64; PULSE 68; TEMP 36.7; O2SAT 96
[2017-07-07 06:50] LABS: CREATININE 0.93 mg/dl (0.60-1.20)
[2017-07-07 07:03] VITALS: BP 107/66; PULSE 72; TEMP 36.7; O2SAT 96
[2017-07-07] MEDS: FAMOTIDINE 20 MG TAB PO SCH ×2 (08:11→21:06)
[2017-07-07] MEDS: BuPROPion SR 150 MG TABCR PO SCH (08:12)
--- NOTE | 2017-07-07 11:19 | Progress Note ---
Subjective Date of Service: Jul 07, 2017. Subjective Pt evaluation today including: conversation w/ patient Pt continues to do well. Still ambulating without issue. No bowel movement "but it feels like it is there". She tolerated clears all day yesterday. She did not eat this AM, but only due to the clears tray not looking overly appealing to her. She thinks she would have eaten something else. No abd pain. Pt denies fever, SOB, chest pain, n/v/c/d, LE pain or swelling. Review of Systems All Other Systems: Reviewed and Negative Objective Vital Signs Date Time Temp Pulse Resp B/P (MAP) Pulse Ox O2 Delivery O2 Flow Rate FiO2 07/07/17 08:00 Room Air 07/07/17 07:03 36.7 72 18 107/66 (80) 96 Room Air 07/07/17 00:03 36.7 68 18 109/64 (79) 96 Room Air 07/07/17 00:00 Room Air 07/06/17 15:30 98 Room Air 07/06/17 15:00 36.6 79 18 98/64 (75) 98 Room Air Physical Exam Comments: General Appearance: WD/WN, no apparent distress Eyes: normal inspection, EOMI Respiratory/Chest: normal breath sounds, no respiratory distress Cardiovascular: regular rate, rhythm, no edema Abdomen: non tender, soft Extremities: non-tender, no pedal edema Neurologic/Psychiatric: alert, normal mood/affect, oriented x 3 Skin: normal color, warm/dry Laboratory Results Last 24 Hours Test 07/07/17 05:48 Creatinine 0.93 mg/dl Est Creatinine Clear Calc Drug Dose 58.3 ml/min Estimated GFR () 79.6 Estimated GFR (Non- 68.7 Assessment and Plan 56 year old female with diverticulitis Diverticulitis with microperforations - zosyn 3.375g Q6H -> ertapenem for ease of dosing on d/c, planning for minimum 7-10days per ID--script left with CM PICC placed 07/06 - Blood cx NGTD - Clears and advancing slowly - consult surgery, CT abd pelvis 07/05 no evidence of free air, likely small fluid collection, ?abscess - by patient request consult her gastroenterology Dr Clark, to arrange follow up colonoscopy as outpatient - Cont IVF - repeat labs - CBC, CMP, no leukocytosis or fevers noted Advised pt that she should not take S boullardi for concern regarding PICC fungal infections, however other probiotics are safe in this situation and would likely benefit pt. Discussed with surgery. Surgery is planning for d/c over the weekend if ongoing dietary tolerance Anxiety - continue Wellbutrin PO Hypokalemia - Replace PRN
--- NOTE | 2017-07-07 12:39 | Surgery Progress Note ---
Surgery Progress Note Date of Service Jul 07, 2017. Subjective doing well- IV atbx with picc line Objective Vital Signs: Date Time Temp Pulse Resp B/P (MAP) Pulse Ox O2 Delivery O2 Flow Rate FiO2 07/07/17 08:00 Room Air 07/07/17 07:03 36.7 72 18 107/66 (80) 96 Room Air 07/07/17 00:03 36.7 68 18 109/64 (79) 96 Room Air 07/07/17 00:00 Room Air 07/06/17 15:30 98 Room Air 07/06/17 15:00 36.6 79 18 98/64 (75) 98 Room Air General Appearance: no apparent distress Respiratory/Chest: no respiratory distress Abdomen: soft Laboratory Results: Results Past 24 Hours Test 07/07/17 05:48 Range/Units Creatinine 0.93 0.60-1.20 mg/dl Est Creatinine Clear Calc Drug Dose 58.3 ml/min Estimated GFR () 79.6 Estimated GFR (Non- 68.7 Assessment & Plan 07/07/17- adv to full liquids for dinner- plan IV atbx total 2 weeks possible d/c Alexandra . manager shell for low fiber diet for 1-2 weeks info in for her to call for appt to see in 2 weeks- will need colonoscopy at some point- last was 3-[address] Maza following over weekend 07/06/17- no acute chgs- will try clear liquids- adv very slowly. picc ordered, consent signed- IV atbx in hospital 2-3 more days then at home ,probably 2 weeks total- colonoscopy 4-6 weeks should have colectomy in future 07/05/17- improved- do not have film to assess severity of disease- will order CT this am. Cont limited po and IV atbx. may have sips. Will ask ID for suggestions re atbx- depending on severity of perf- may consider picc/ home IV atbx- pt stable 07/06/17- no acute chgs- will try clear liquids- adv very slowly. picc ordered, consent signed- IV atbx in hospital 2-3 more days then at home ,probably 2 weeks total- colonoscopy 4-6 weeks should have colectomy in future 07/05/17- improved- do not have film to assess severity of disease- will order CT this am. Cont limited po and IV atbx. may have sips. Will ask ID for suggestions re atbx- depending on severity of perf- may consider picc/ home IV atbx- pt stable
[2017-07-07] MEDS: ERTAPENEM IV 1 GM in SODIUM CHLOR 0.9% AD-VAN 50ML 50 ML IV SCH (14:05)
[2017-07-07 14:35] VITALS: BP 110/69; PULSE 72; TEMP 36.8; O2SAT 96
[2017-07-07] MEDS: ONDANSETRON INJ 2 MG/ML 2 ML VIAL IV PRN (15:40)
[2017-07-07 17:19] VITALS: O2SAT 96
[2017-07-07] MEDS ORDERED: LACTULOSE SYRUP 20 GM/30 ML UDC PO STA (20:16)
[2017-07-07 23:29] VITALS: BP 104/64; PULSE 67; TEMP 36.5; O2SAT 97
[2017-07-08 07:10] VITALS: BP 131/79; PULSE 69; TEMP 36.4; O2SAT 95
[2017-07-08] MEDS: BuPROPion SR 150 MG TABCR PO SCH (08:10)
[2017-07-08] MEDS: FAMOTIDINE 20 MG TAB PO SCH ×2 (08:10→20:33)
[2017-07-08] MEDS ORDERED: NURSING VERBAL MED ORDER ONE (09:00)
--- NOTE | 2017-07-08 11:07 | Surgery Progress Note ---
Surgery Progress Note Date of Service Jul 08, 2017. Subjective Feels great. No further abdominal pain. Tolerating full liquids since last night. Objective Vital Signs: Date Time Temp Pulse Resp B/P (MAP) Pulse Ox O2 Delivery O2 Flow Rate FiO2 07/08/17 07:10 36.4 69 18 131/79 (96) 95 Room Air 07/08/17 00:00 Room Air 07/07/17 23:29 36.5 67 16 104/64 (77) 97 Room Air 07/07/17 17:19 96 Room Air 07/07/17 14:35 36.8 72 18 110/69 (83) 96 Room Air General Appearance: WD/WN, no apparent distress Respiratory/Chest: normal breath sounds, no respiratory distress Cardiovascular: regular rate, rhythm Abdomen: normal bowel sounds, non tender, non distended, soft, no organomegaly Laboratory Results: Microbiology Results 07/08/17 C.difficile Toxin B Gene (PCR) - Final, Complete No C. difficile toxin B gene detected 07/08/17 Shiga Toxin Test, Received Pending 07/08/17 Stool Culture, Received Pending Assessment & Plan Acute diverticulitis -resolving. OK to advance to low fiber diet tonight with plans for discharge on IV abx tomorrow.
[2017-07-08] MEDS: ERTAPENEM IV 1 GM in SODIUM CHLOR 0.9% AD-VAN 50ML 50 ML IV SCH (14:19)
[2017-07-08 15:21] VITALS: BP 116/71; PULSE 73; TEMP 36.6; O2SAT 97
[2017-07-08] MEDS ORDERED: BUPR-79 PO (16:47)
--- NOTE | 2017-07-08 16:58 | Hospitalist Progress Note ---
Hospitalist Progress Note Date of Service Jul 08, 2017. Subjective Pt evaluation today including: conversation w/ patient PO Intake: benito po Voiding: no voiding problems Pt feeling well, no abd pain at all, afebrile. Diet advanced to low fiber for this evening but tolerating liquids so far. Had multiple BMs today but had lactulose yesterday. Feels like starting ot have vag itching and usually gets vag yeast infections on abx, no vag discharge yet Respiratory: No shortness of breath Cardiovascular: No chest pain Abdomen: No pain All Other Systems: Reviewed and Negative Objective Vital Signs Date Time Temp Pulse Resp B/P (MAP) Pulse Ox O2 Delivery O2 Flow Rate FiO2 07/08/17 15:21 36.6 73 18 116/71 (86) 97 07/08/17 08:00 Room Air 07/08/17 07:10 36.4 69 18 131/79 (96) 95 Room Air 07/08/17 00:00 Room Air 07/07/17 23:29 36.5 67 16 104/64 (77) 97 Room Air 07/07/17 17:19 96 Room Air Physical Exam General Appearance: WD/WN, no apparent distress Eyes: normal inspection, sclerae normal ENT: hearing grossly normal Neck: trachea midline Respiratory/Chest: lungs clear, normal breath sounds, no respiratory distress, no accessory muscle use Cardiovascular: regular rate, rhythm, no edema, no gallop, no murmur Abdomen: normal bowel sounds, non tender, soft, no organomegaly, no pulsatile mass, + pertinent finding (external genitalia without any erythema, no labial erythema, no obvious vaginal discharge) Extremities: non-tender, normal inspection, no pedal edema, no calf tenderness Neurologic/Psychiatric: alert, normal mood/affect Skin: normal color, warm/dry, no rash Assessment and Plan Pt is a 56 year old female with a h/o smoking, who presents with LLQ abdominal pain, was found to have acute sigmoid diverticulitis w/ microperforation and small amount free fluid, no definite abscess. Acute sigmoid Diverticulitis with microperforation and small amount surrounding free fluid, no definite abscess-Surgery concerned about potential abscess given how sick she was on admission. WBC count 12k on admit, had failed outpt therapy with po Cipro and Flagyl. This is her 6-7th occurrence of acute diverticulitis since 2009. - Was on zosyn 3.375g Q6H -> switched to ertapenem for ease of dosing on d/c, planning for total 2 weeks of IV abx--> last date of abx 07/17/17 -PICC placed 07/06, will likely dc tomorrow after afternoon dose of abx-pt requesting to have dose earlier to get home prior to dark-lives 2 hours away - Blood cx NGTD - Clears and advancing slowly-going to low fiber diet tonight - by patient request consult her gastroenterology Dr Clark, to arrange follow up colonoscopy as outpatient - no longer on IVFs - check CBC, LFTs, PRP in AM to ensure no changes while on abx therapy Advised pt that she should not take S boullardi for concern regarding PICC fungal infections, however other probiotics are safe in this situation and would likely benefit pt. -will start Floranex Appreciate Surgery and GI consultations -will need Surgery f/u with Dr. Valle in 2 weeks, GI f/u and repeat colonoscopy in 6 weeks Current Smoker-was on Wellbutrin for smoking cessation assistance, actually takes it bid at home, changed it on home med rec - continue Wellbutrin and encouraged continued smoking cessation Hypokalemia - Replaced PRN -check PRP in AM Vaginal candidiasis-secondary to abx use -give Diflucan 150mg po x 1 now -f/u with PCP if not improving Proph-ambulation, TEDS, SCDs, no chemoprophylaxis in case she needed urgent surgical procedure Dispo- to home likely tomorrow if benito low fiber diet
[2017-07-08] MEDS ORDERED: FLUCONAZOLE 50 MG TAB PO ONE (17:30)
[2017-07-08] MEDS: LACTOBACILLUS ACIDOPHILUS (FLORANEX) TAB PO SCH (18:14)
--- NOTE | 2017-07-08 19:37 | Infectious Disease Progress Nt ---
Progress Note Date of Service Jul 08, 2017. Subjective Pt evaluation today including: conversation w/ patient, physical exam, chart review, lab review, review of studies, conversation w/ desktop support consultant, review of inpatient medication list much from her the tetanus and patient feeling better with less abdominal pain. Remains afebrile. Tolerating antibiotic without apparent difficulty. All Other Systems: Reviewed and Negative Medications Current Inpatient Medications Medications (Trade) Dose Ordered Sig/Melvina Route Start Time Stop Time Status Last Admin Dose Admin Acetaminophen (Tylenol Tab) 650 mg Q4H PRN PO 07/04/17 02:30 08/03/17 02:29 07/05/17 08:21 650 MG Ondansetron HCl (Zofran Inj) 4 mg Q6H PRN IV 07/04/17 02:30 08/03/17 02:29 07/07/17 15:40 4 MG Bupropion HCl (Wellbutrin-Sr Tab) 150 mg DAILY PO 07/04/17 09:00 08/03/17 08:59 07/08/17 08:10 150 MG Acetaminophen 650 mg/Empty Bag 65 ml @ 260 mls/hr Q6H PRN IV 07/04/17 02:30 08/03/17 02:29 Ketorolac Tromethamine (Toradol Inj) 15 mg Q6H PRN IV 07/04/17 02:30 07/09/17 02:29 07/05/17 19:36 15 MG Dextrose (Dextrose 50% 50ML Syringe) 25-50ML OF 50% DW IV FOR... UD PRN IV 07/04/17 07:00 08/03/17 06:59 07/04/17 19:13 25 ML Morphine Sulfate (MoRPHine SULFATE INJ) 2 mg Q4H PRN IV 07/05/17 06:15 07/19/17 06:14 Morphine Sulfate (MoRPHine SULFATE INJ) 1 mg Q3HWA PRN IV 07/05/17 06:15 07/19/17 06:14 Ioversol (Optiray 320) 100 ml UD PRN IV 07/05/17 06:30 07/09/17 06:29 Famotidine (Pepcid Tab) 20 mg BID PO 07/05/17 21:00 08/04/17 20:59 07/08/17 08:10 20 MG Lorazepam 0.5 mg/ Syringe 0.5 ml @ 0.5 mls/min Q6 PRN IV 07/06/17 06:45 08/05/17 06:44 07/06/17 10:08 0.5 MLS/MIN Heparin Sodium (Porcine) (Heparin 10 Unit/ ml 5 ml Flush) 5 ml PRN PRN FLUSH 07/06/17 11:45 08/05/17 11:44 07/07/17 15:40 5 ML Diphenhydramine HCl (Benadryl Cap) 25 mg Q4H PRN PO 07/08/17 09:30 08/07/17 09:29 07/08/17 09:20 25 MG Lactobacillus Acidophilus (Floranex Tab) 4 tab TIDM PO 07/08/17 18:00 08/07/17 17:59 07/08/17 18:14 4 TAB Ertapenem 1 gm/ Sodium Chloride 50 ml @ 120 mls/hr Q24H IV 07/09/17 12:00 07/16/17 13:59 Objective Vital Signs Date Time Temp Pulse Resp B/P (MAP) Pulse Ox O2 Delivery O2 Flow Rate FiO2 07/08/17 16:00 Room Air 07/08/17 15:21 36.6 73 18 116/71 (86) 97 07/08/17 08:00 Room Air 07/08/17 07:10 36.4 69 18 131/79 (96) 95 Room Air 07/08/17 00:00 Room Air 07/07/17 23:29 36.5 67 16 104/64 (77) 97 Room Air Physical Exam General Appearance: WD/WN, no apparent distress Eyes: normal inspection, EOMI, sclerae normal ENT: normal ENT inspection, hearing grossly normal, pharynx normal Neck: supple, no adenopathy, thyroid normal, trachea midline Respiratory/Chest: chest non-tender, lungs clear, normal breath sounds, no respiratory distress Cardiovascular: regular rate, rhythm ( Wit), no gallop, no murmur Abdomen: normal bowel sounds, soft, no organomegaly, + tenderness Extremities: non-tender, no calf tenderness Neurologic/Psychiatric: alert, oriented x 3 Skin: normal color, warm/dry, no rash Lymphatic: no adenopathy Assessment and Plan Recurrent sigmoid diverticulitis, responding to IV antibiotics. Given multiple recurrences, would think that surgical resection would be appropriate in the future. I would recommend continuing IV antibiotics for at least 7-10 day course total, but could changed to IV ertapenem to allow easier outpatient therapy. Will discuss with all involved. Will follow.
[2017-07-08 23:34] VITALS: BP 106/68; PULSE 76; TEMP 36.6; O2SAT 96
[2017-07-09 05:51] LABS: BASO % 0.9 %; BASO ABS # 0.05 K/uL (0-0.2); COMPLETE YES; EOS % 3.7 %; HEMATOCRIT 37.6 % (37-47); IG% 0.4 %; LYMPH % 45.9 %; LYMPH ABS # 2.47 K/uL (1.2-3.4); MEAN CELL VOLUME 92.4 fL (80-100); MEAN CORPUSCULAR HEMOGLOBIN 31.4 pg (25-34); MEAN PLATELET VOLUME 9.8 fL (7.4-10.4); MONO % 13.4 %; NEUT % 35.7 %; PLATELET COUNT 257 K/uL (130-400); RED BLOOD COUNT 4.07 M/uL (4.2-5.4); WHITE BLOOD COUNT 5.38 K/uL (4.8-10.8)
[2017-07-09 06:22] LABS: BUN/CREATININE RATIO 7.2 (10-20); CALCIUM 8.8 mg/dl (8.5-10.1); CREATININE 0.97 mg/dl (0.60-1.20); POTASSIUM 3.4 mmol/L (3.5-5.1)
[2017-07-09 07:03] VITALS: BP 117/79; PULSE 74; TEMP 36.3; O2SAT 97
[2017-07-09] MEDS: BuPROPion SR 150 MG TABCR PO SCH (07:41)
[2017-07-09] MEDS: LACTOBACILLUS ACIDOPHILUS (FLORANEX) TAB PO SCH ×2 (07:41→11:59)
[2017-07-09] MEDS: FAMOTIDINE 20 MG TAB PO SCH (07:41)
[2017-07-09] MEDS ORDERED: POTASSIUM CHLORIDE 20 MEQ TABCR PO STA (08:25)
[2017-07-09] MEDS ORDERED: ERTAPENEM IV 1 GM in SODIUM CHLOR 0.9% AD-VAN 50ML 50 ML IV SCH (12:00)
[2017-07-09] MEDS ORDERED: INVAV1 IV (12:40)
[2017-07-09] MEDS ORDERED: LCTX PO (12:40)
--- NOTE | 2017-07-09 12:46 | Discharge Instructions ---
Discharge Instructions Date of Service Jul 09, 2017. Admission Reason for Admission: Diverticulitis Discharge Discharge Diagnosis / Problem: Acute diverticulitis with abscess Discharge Goals Goal(s): Improve disease control, Diagnostic testing, Therapeutic intervention Activity Recommendations Activity Limitations: resume your previous activity Lifting Limitations: none Exercise/Sports Limitations: gradually increase as tolerated Shower/Bathe: no limitations Driving or Machine Use: no limitations Do not let your PICC line get wet . Instructions / Follow-Up Instructions / Follow-Up You were admitted with acute diverticulitis and had a small abscess (pocket of pus) around the infected portion of your bowel. You will require a total of 2 weeks of IV antibiotics for this through your PICC line. This has been arranged for you to be done at home. Please follow up with Dr. Valle/General Surgery within 2 weeks, as well as with your PCP within 2 weeks. Current Hospital Diet Patient's current hospital diet: Low Fiber Diet Discharge Diet Recommended Diet: Low Fiber Diet Procedures Procedures Performed: CT abdomen/pelvis PICC line insertion Pending Studies Studies pending at discharge: no Laboratory Results Last 24 Hours Test 07/09/17 05:42 White Blood Count 5.38 K/uL Red Blood Count 4.07 M/uL Hemoglobin 12.8 g/dL Hematocrit 37.6 % Mean Corpuscular Volume 92.4 fL Mean Corpuscular Hemoglobin 31.4 pg Mean Corpuscular Hemoglobin Concent 34.0 g/dl Platelet Count 257 K/uL Mean Platelet Volume 9.8 fL Neutrophils (%) (Auto) 35.7 % Lymphocytes (%) (Auto) 45.9 % Monocytes (%) (Auto) 13.4 % Eosinophils (%) (Auto) 3.7 % Basophils (%) (Auto) 0.9 % Neutrophils # (Auto) 1.92 K/uL Lymphocytes # (Auto) 2.47 K/uL Monocytes # (Auto) 0.72 K/uL Eosinophils # (Auto) 0.20 K/uL Basophils # (Auto) 0.05 K/uL RDW Standard Deviation 43.0 fL RDW Coefficient of Variation 12.9 % Immature Granulocyte % (Auto) 0.4 % Immature Granulocyte # (Auto) 0.02 K/uL Sodium Level 143 mmol/L Potassium Level 3.4 mmol/L Chloride Level 105 mmol/L Carbon Dioxide Level 31 mmol/L Anion Gap 7.0 mmol/L Blood Urea Nitrogen 7 mg/dl Creatinine 0.97 mg/dl Est Creatinine Clear Calc Drug Dose 55.9 ml/min Estimated GFR () 75.7 Estimated GFR (Non- 65.3 BUN/Creatinine Ratio 7.2 Random Glucose 74 mg/dl Calcium Level 8.8 mg/dl Total Bilirubin 0.4 mg/dl Direct Bilirubin 0.1 mg/dl Aspartate Amino Transf (AST/SGOT) 43 U/L Alanine Aminotransferase (ALT/SGPT) 64 U/L Alkaline Phosphatase 87 U/L Total Protein 6.5 gm/dl Albumin 3.1 gm/dl 25-Hydroxy Vitamin D Total 28.9 ng/ml Medical Emergencies . Who to Call and When: Medical Emergencies: If at any time you feel your situation is an emergency, please call 911 immediately. . Non-Emergent Contact Non-Emergency issues call your: Primary Care Provider, Surgeon Call Non-Emergent contact if: you have a fever, temperature is above 100.5, your pain is not controlled, your pain is worsening, your pain is unusual for you, your pain is concerning you, you have any medication questions you have any problems with your PICC line, arm or leg swelling, chest pain, or shortness of breath. . . "Provider Documentation" section prepared by Goldie Soto. . VTE Core Measure Inpt VTE Proph given/why not?: T.E.D. Stockings, SCD's, Contraindicated ( pending surgical consult)
[2017-07-09] MEDS ORDERED: VTMD1000 PO (12:53)
--- NOTE | 2017-07-09 12:55 | Discharge Summary ---
Discharge Summary Date of Service Jul 09, 2017. Discharge Summary Admission Date: Jul 04, 2017 at 01:57 Discharge Date: Jul 09, 2017 Discharge Disposition: Home with services Principal Diagnosis: Acute diverticulitis with abscess Problems/Secondary Diagnoses: Current smoker Hypokalemia Vaginal candidiasis Vitamin D insufficiency Immunizations: Have You Had Influenza Vaccine: Unknown History of Tetanus Vaccine?: Unknown History of Pneumococcal: Unknown History of Hepatitis B Vaccine: Unknown Procedures: CT abdomen/pelvis PICC line insertion Consultations: General Surgery Gastroenterology Medication Reconciliation New Medications: Cholecalciferol (Vitamin D3) 1,000 Inter.unit Tab 1000 UNITS PO DAILY for 30 Days Ertapenem (Invanz) 1 Gm Inj 1 GM IV Q24H for 8 Days Last dose on 07/17/17 Lactobacillus Acidophilus (Floranex) 1 Tab Tab 4 TAB PO TIDM for 14 Days, #168 TAB Continued Medications: Bupropion (Wellbutrin Sr) 150 Mg Ertab 150 MG PO BID for 30 Days, #60 TAB Referrals At Discharge Follow up Referrals: Surgery Referral - Within 1-2 Weeks with Chiki Valle M.D. Discharge Exam Pt feeling great. Vaginal itching clearing up since taking diflucan. No abd pain , is benito low fiber diet, no abd pain, no N/V. Physical Exam General Appearance: WD/WN, no apparent distress Eyes: normal inspection, sclerae normal ENT: hearing grossly normal Neck: trachea midline Respiratory/Chest: lungs clear, normal breath sounds, no respiratory distress, no accessory muscle use Cardiovascular: regular rate, rhythm, no edema, no gallop, no murmur Abdomen: normal bowel sounds, very minimal tenderness with deep palpation in LLQ without guarding or rebound, soft, no organomegaly, no pulsatile mass Extremities: non-tender, normal inspection, no pedal edema, no calf tenderness Neurologic/Psychiatric: alert, normal mood/affect Skin: normal color, warm/dry, no rash, LUE PICC line in place without any surrounding erythema, no drainage Review of Systems: Constitutional: No fever, No chills Eyes: No problem reported ENT: No problem reported Respiratory: No shortness of breath Cardiovascular: No chest pain Abdomen: No pain Musculoskeletal: No problem reported Genitourinary - Female: No problem reported Neurologic: No problem reported Psychiatric: No problem reported Endocrine: No problem reported Hematologic / Lymphatic: No problem reported Integumentary: No problem reported Hospital Course Pt is a 56 year old female with a h/o smoking, who presents with LLQ abdominal pain, was found to have acute sigmoid diverticulitis w/ microperforation and small amount free fluid, no definite abscess. Acute sigmoid Diverticulitis with microperforation and small amount surrounding free fluid, no definite abscess-Surgery concerned about potential abscess given how sick she was on admission. WBC count 12k on admit, had failed outpt therapy with po Cipro and Flagyl. This is her 6-7th occurrence of acute diverticulitis since 2009. - Was on zosyn 3.375g Q6H -> switched to ertapenem for ease of dosing on d/c, planning for total 2 weeks of IV abx--> last date of abx 07/17/17 -PICC placed 07/06 - Blood cx negative - advanced diet slowly to low fiber diet and was tolerating on day of discharge - by patient request consult her gastroenterology Dr Clark, to arrange follow up colonoscopy as outpatient in 6 weeks -very mild elevation in AST to 43 on day of discharge, NOT 2x ULN, follow LFTs with PCP in 1 week Advised pt that she should not take S boullardi for concern regarding PICC fungal infections, however other probiotics are safe in this situation and would likely benefit pt. -will start Floranex and can continue at home Appreciate Surgery and GI consultations -will need Surgery f/u with Dr. Valle in 2 weeks, GI f/u and repeat colonoscopy in 6 weeks Vitamin D insufficiency-Vit D level here 28. There is some correlation between low Vit D levels and recurrent diverticulitis requiring hospitalization -recommend starting Vit D 1000 units once daily and f/u with PCP Current Smoker-was on Wellbutrin for smoking cessation assistance, actually takes it bid at home, changed it on home med rec - continue Wellbutrin and encouraged continued smoking cessation Hypokalemia - Replaced po Vaginal candidiasis-secondary to abx use-improved -gave Diflucan 150mg po x 1 Discharged to home with Home Health and PICC line for prolonged IV antibiotic course Total Time Spent: Greater than 30 minutes This includes examination of the patient, discharge planning, medication reconciliation, and communication with other providers. Discharge Instructions Please refer to the electronic Patient Visit Report (Discharge Instructions) for additional information. Follow-Up PCP within 2 weeks General Surgery within 2 weeks Colonoscopy with GI in 6 weeks Additional Copies To Chiki Valle M.D.; PILY HESTER D.O.
[2017-07-09 13:00] VITALS: BP 117/79; PULSE 74; TEMP 36.3; O2SAT 97
== END 2017-07-09 14:00 | disposition home health service (06) | DRG 392 ==
LOC: C.2E 07-04 01:57 → ENRESERV 07-04 10:55 → C.MS2W 07-04 11:35
PROVIDERS: ADMIT Hospitalist; ATTEND Family Medicine
DX: K57.20 Diverticulitis of large intestine with perforation and abscess without bleeding (principal); F17.200 Nicotine dependence, unspecified, uncomplicated; E87.6 Hypokalemia; B37.3 Candidiasis of vulva and vagina; E55.9 Vitamin D deficiency, unspecified; F41.9 Anxiety disorder, unspecified

== ENCOUNTER → 2017-07-21 | Day surgery (SDC) | payer OTHER ==
[~2017-07-21] VITALS: Ht 162.6 cm; Wt 60.5 kg
[~2017-07-21] MED LIST: BUPR-79 PO; INVAV1 IV; LCTX PO; VTMD1000 PO
[2017-07-21 09:50] VITALS: BP 133/60; PULSE 82; TEMP 36.5; O2SAT 98; Ht 162.6 cm; Wt 60.5 kg
== END | disposition home or self-care (01) ==
LOC: C.MTU 09:44
PROVIDERS: ATTEND Internal Medicine Infectious Disease
DX: K57.32 Diverticulitis of large intestine without perforation or abscess without bleeding (principal)

== ENCOUNTER → 2017-09-05 | Outpatient (CLI) | payer OTHER ==
[~2017-09-05] MED LIST changes: -INVAV1 IV; -LCTX PO; +OPTIRAY 320 IV PRN; +PANT40TA PO; -VTMD1000 PO
--- NOTE | 2017-09-05 13:21 | DIAGNOSTIC IMAGING REPORT ---
ABDOMEN AND PELVIS CT WITH IV AND ORAL CONTRAST CT DOSE: 398.16 mGycm HISTORY: K57.32 Diverticulitis of colon TECHNIQUE: Multiaxial CT images of the abdomen and pelvis were performed following the use of intravenous and oral contrast. A dose lowering technique was utilized adhering to the principles of ALARA. COMPARISON STUDY: CT abdomen and pelvis 07/05/2017. FINDINGS: Lung bases are generally clear with only minimal dependent subsegmental bibasilar atelectasis. There is no pneumatosis or pneumoperitoneum. Imaged inferior cardiac chambers are unremarkable. Circumscribed low attenuating lesions of the left hepatic lobe are again seen measuring up to 1.3 cm suggesting hepatic cysts. No intrahepatic biliary ductal dilation. The spleen, pancreas, gallbladder and left adrenal gland are unremarkable. There is mild thickening of the right adrenal gland suggesting hyperplasia. Low attenuating lesions of the kidneys measuring up to 4 mm suggest renal cysts. No renal calculi or hydronephrosis identified. The urinary bladder is unremarkable. Prior hysterectomy. No adnexal mass lesions identified. The aorta is normal in both course and caliber without aneurysm. No bulky adenopathy. There is no bowel obstruction. Mild to moderate sigmoid colon diverticulosis without CT evidence of acute diverticulitis at this time. No focal bowel wall thickening or associated inflammatory changes about the colon. Appendix is not seen and likely surgically absent. Soft tissues are unremarkable. The bones appear intact. IMPRESSION: 1. Mild to moderate sigmoid colon diverticulosis without CT evidence of acute diverticulitis. 2. No bowel obstruction or focal bowel wall thickening. 3. Prior hysterectomy and appendectomy. Electronically signed by: Dada Wood M.D. 09/05/2017 1:20 PM Dictated Date/Time: 09/05/2017 1:14 PM
== END | disposition home or self-care (01) ==
LOC: C.CTS 12:04
PROVIDERS: ATTEND Surgery
DX: K57.30 Diverticulosis of large intestine without perforation or abscess without bleeding (principal); Z90.710 Acquired absence of both cervix and uterus

== ENCOUNTER → 2017-09-12 | Day surgery (SDC) | payer OTHER ==
[2017-09-07 15:33] VITALS: Ht 162.6 cm; Wt 62.3 kg
[~2017-09-12] VITALS: Ht 162.6 cm; Wt 62.3 kg
[~2017-09-12] MED LIST changes: +LIDOCAINE HCL 2% 2 ML VIAL (20MG/ML) ONE; -OPTIRAY 320 IV PRN; +PROPOFOL IV EMULSION 10 MG/ML 20 ML VIAL IV ONE; +SODIUM CHLORIDE 0.9% 500ML 500 ML IV ONE
--- NOTE | 2017-09-12 12:19 | Endo History and Physical ---
History & Physical Date of Service: Sep 12, 2017. Chief Complaint: Diverticulitis Referring Physician: Dr Leonard Dia History of Present Illness 56 yo CF who presents for colonoscopy secondary to diverticulitis. Past Surgical History Hx Cardiac Surgery: No Hx Internal Defibrillator: No Hx Pacemaker: No Hx Abdominal Surgery: Yes (hysterectomy, appendectomy) Hx of Implantable Prosthesis: No Hx Post-Op Nausea and Vomiting: No Hx Cancer Surgery: No Hx Thoracic Surgery: No Hx Orthopedic: No Hx Urinary Tract Surgery: No Family History None Social History Smoking Status: Former Smoker Hx Substance Use: No Hx Alcohol Use: Yes (rarely) Allergies Coded Allergies: No Known Allergies (Unverified , 09/12/17) Current Medications Reported Home Medications Medications Dose Route/Sig Max Daily Dose Days Date Category Protonix (Pantoprazole Sodium) 40 Mg Tab 40 Mg PO QAM 08/30/17 Reported Wellbutrin Sr (Bupropion HCl) 150 Mg Ertab 150 Mg PO BID 30 07/08/17 Rx Vital Signs Weight (Kilograms): 62.27 Height (Feet): 5 Height (Inches): 4 Date Time Temp Pulse Resp B/P (MAP) Pulse Ox O2 Delivery O2 Flow Rate FiO2 09/12/17 11:36 36.8 83 20 119/78 (92) 97 Room Air Physical Exam General Appearance: WD/WN, no apparent distress Respiratory/Chest: Auscultation: breath sounds normal Cardiovascular: Heart Auscultation: RRR Abdomen: Bowel Sounds: normal Inspection & Palpation: soft, non-distended, no tenderness, guarding & rebound Assessment and Plan Assessment: 56 yo CF who presents for colonoscopy secondary to diverticulitis. Plan: Proceed with colonoscopy.
--- NOTE | 2017-09-12 12:43 | Discharge Instructions ---
Endoscopy Patient Instructions Date / Procedure(s) Performed Sep 12, 2017. Colonoscopy Allergy Information Coded Allergies: No Known Allergies (Unverified , 09/12/17) Discharge Date / Findings Sep 12, 2017. Diverticulosis Internal hemorrhoids Medication Instructions OK to resume all medications today as prescribed Reported Home Medications Medications Dose Route/Sig Max Daily Dose Days Date Category Protonix (Pantoprazole Sodium) 40 Mg Tab 40 Mg PO QAM 08/30/17 Reported Wellbutrin Sr (Bupropion HCl) 150 Mg Ertab 150 Mg PO BID 30 07/08/17 Rx Provider Instructions Activity Restrictions - No exercising or heavy lifting for 24 hours. - Do not drink alcohol the day of the procedure. - Do not drive a car or operate machinery until the day after the procedure. - Do not make any important decisions or sign important papers in 24 hours after the procedure. Following Day: - Return to full activity which may include returning to work/school. Diet Start your diet with liquids and light foods (jello, soup, juice, toast). Then eat your usual diet if not nauseated. Treatment For Common After Affects For mild abdominal pain, bloating, or excessive gas: - Rest - Eat lightly - Lie on right side Follow-Up Information Follow-up with Dr Kelly Friedman, Dr Valle as scheduled Anesthesia Information What You Should Know You have had a procedure that required some medicine to reduce anxiety and discomfort. This treatment is called moderate sedation. After receiving the treatment, you may be sleepy, but you will be able to breathe on your own. The effects of the treatment may last for several hours. Follow these instructions along with Activity/Diet recommendations noted above: * Do NOT do anything where dizziness or clumsiness would be dangerous. * Rest quietly at home today, then you can be up and about tomorrow. * Have a responsible person stay with you the rest of today. * You may have had an I.V. today. If so, you may take the dressing off later today. Recommendations Call your doctor if: * Trouble breathing * Continuous vomiting for more than 24 hours * Temperature above 101 degrees * Severe abdominal pain or bloating * Pain not relieved by pain medicine ordered * There is increased drainage or redness from any incision * A large amount of rectal bleeding greater than 2-3 tablespoons. (If you had a polyp/s removed or have hemorrhoids, a small amount of blood - from the rectum is to be expected.) * You have any unanswered questions or concerns. IN THE EVENT OF A SERIOUS EMERGENCY, GO TO THE NEAREST EMERGENCY ROOM Your discharge instructions were prepared by provider Danilo Urbano. Patient Instructions Signature Page Katy Michel Patient (or Guardian) Signature/Date: I have read and understand the instructions given to me by my caregivers. Caregiver/RN/Doctor Signature/Date: The above-named patient and/or guardian has received patient instructions on this date. + Original Patient Signature Page (only) stays with chart. Please make copy for patient.
--- NOTE | 2017-09-12 12:47 | GI REPORT ---
Procedure Date: 09/12/2017 11:56 AM Procedure: Colonoscopy Indications: Follow-up of diverticulitis Medicines: Monitored Anesthesia Care Complications: No immediate complications. Estimated Blood Loss: Estimated blood loss: none. Procedure: Pre-Anesthesia Assessment: - Prior to the procedure, a History and Physical was performed, and patient medications and allergies were reviewed. The patient's tolerance of previous anesthesia was also reviewed. The risks and benefits of the procedure and the sedation options and risks were discussed with the patient. All questions were answered, and informed consent was obtained. Prior Anticoagulants: The patient has taken no previous anticoagulant or antiplatelet agents. ASA Grade Assessment: II - A patient with mild systemic disease. After reviewing the risks and benefits, the patient was deemed in satisfactory condition to undergo the procedure. After I obtained informed consent, the scope was passed under direct vision. Throughout the procedure, the patient's blood pressure, pulse, and oxygen saturations were monitored continuously. The scope was introduced through the anus and advanced to the terminal ileum. The colonoscopy was performed without difficulty. The patient tolerated the procedure well. The quality of the bowel preparation was good. The terminal ileum, ileocecal valve, appendiceal orifice, and rectum were photographed. Findings: The perianal and digital rectal examinations were normal. Multiple small-mouthed diverticula were found in the sigmoid colon. Non-bleeding internal hemorrhoids were found during retroflexion. The hemorrhoids were small. Impression: - Diverticulosis in the sigmoid colon. - Non-bleeding internal hemorrhoids. - No specimens collected. Recommendation: - Resume previous diet. - Continue present medications. - Repeat colonoscopy in 10 years for surveillance. - Return to primary care physician as previously scheduled. Danilo Urbano, DO 09/12/2017 12:46:31 PM This report has been signed electronically. Note Initiated On: 09/12/2017 11:56 AM I attest to the content of the Intraoperative Record and orders documented therein, exceptions below
[2017-09-12 13:15] VITALS: BP 110/78; PULSE 79; O2SAT 100
--- NOTE | 2017-09-12 13:39 | Anesthesiology Progress Note ---
Anesthesia Post Op Note Date & Time Sep 12, 2017 at 13:39 Vital Signs Pain Intensity: 0 Vital Signs Past 12 Hours Date Time Temp Pulse Resp B/P (MAP) Pulse Ox O2 Delivery O2 Flow Rate FiO2 09/12/17 13:15 79 18 110/78 (89) 100 Room Air 09/12/17 13:00 82 18 118/81 (93) 99 Room Air 09/12/17 12:46 100 16 94/59 (71) 100 Room Air 09/12/17 11:36 36.8 83 20 119/78 (92) 97 Room Air Notes Mental Status: alert / awake / arousable, participated in evaluation Pt Amnestic to Procedure: Yes Nausea / Vomiting: adequately controlled Pain: adequately controlled Airway Patency, RR, SpO2: stable & adequate BP & HR: stable & adequate Hydration State: stable & adequate Anesthetic Complications: no major complications apparent
== END | disposition home or self-care (01) ==
LOC: C.GI 10:49
PROVIDERS: ATTEND Internal Medicine
DX: K57.30 Diverticulosis of large intestine without perforation or abscess without bleeding (principal); K64.8 Other hemorrhoids; K21.9 Gastro-esophageal reflux disease without esophagitis; Z87.891 Personal history of nicotine dependence; Z90.710 Acquired absence of both cervix and uterus; Z90.49 Acquired absence of other specified parts of digestive tract

== ENCOUNTER 2017-09-13 05:04 | Inpatient (IN) | payer OTHER ==
[2017-08-30 15:26] VITALS: BMI 23.0
[~2017-09-13] VITALS: Ht 162.6 cm; Wt 62.3 kg
[2017-09-13] VITALS (8 sets, daily range): BP systolic 99–121; BP diastolic 55–70; PULSE 72–94; TEMP 36.5–36.9; O2SAT 94–100; Ht 162.6 cm; Wt 62.3 kg
[~2017-09-13 05:04] MED LIST changes: -LIDOCAINE HCL 2% 2 ML VIAL (20MG/ML) ONE; -PROPOFOL IV EMULSION 10 MG/ML 20 ML VIAL IV ONE; -SODIUM CHLORIDE 0.9% 500ML 500 ML IV ONE
[2017-09-13] MEDS ORDERED: LACTATED RINGER'S 1000ML 1,000 ML IV SCH (06:00)
[2017-09-13] MEDS ORDERED: CEFOXITIN IV 2,000 MG in DEXTROSE 5% 50ML 50 ML IV SCH (06:00)
[2017-09-13] MEDS ORDERED: CEFOXITIN SOD 1 GM VIAL ONE (06:34)
[2017-09-13] MEDS ORDERED: CONRAY 30% 150ML BOTTLE ONE (06:34)
[2017-09-13] MEDS ORDERED: MIDAZOLAM HCL 1 MG/ML 2ML VIAL ONE ×2 (06:47→10:43)
[2017-09-13] MEDS ORDERED: FENTANYL CITRATE INJ 50 MCG/1 ML 2 ML VIAL ONE (06:48)
--- NOTE | 2017-09-13 06:49 | History & Physical Bridge Note ---
H&P Re-Evaluation Bridge Note: I have examined the patient, reviewed the History & Physical and in the interval since the performance of the History & Physical I have noted the following changes of clinical significance: No changes noted
[2017-09-13] MEDS ORDERED: PHENYLEPHRINE 100MCG/ML 5ML SYR IV PRN (07:00)
[2017-09-13] MEDS ORDERED: ATROPINE SULFATE 0.1 MG/ML 5ML SYR IV PRN (07:00)
[2017-09-13] MEDS ORDERED: ONDANSETRON INJ 2 MG/ML 2 ML VIAL IV PRN (07:00)
[2017-09-13] MEDS ORDERED: EpHEDrine SULFATE INJ 50 MG/ML AMP IV PRN (07:00)
[2017-09-13] MEDS ORDERED: PHENYLEPHRINE 100MCG/ML 5ML SYR ONE (07:58)
[2017-09-13] MEDS ORDERED: LIDOCAINE HCL 2% 2 ML VIAL (20MG/ML) ONE (07:59)
[2017-09-13] MEDS ORDERED: ROCURONIUM BROMIDE 10 MG/ML 5 ML VIAL IV ONE ×2 (08:00→08:42)
[2017-09-13] MEDS ORDERED: ONDANSETRON INJ 2 MG/ML 2 ML VIAL ONE (08:00)
[2017-09-13] MEDS ORDERED: KETOROLAC TROMETHAMINE 30 MG/ML VIAL ONE (08:46)
[2017-09-13] MEDS ORDERED: NEOSTIGMINE METHYLSULFATE 5 MG/5 ML SYR ONE (09:12)
[2017-09-13] MEDS ORDERED: GLYCOPYRROLATE INJ 0.2 MG/ML VIAL ONE (09:13)
--- NOTE | 2017-09-13 09:26 | [facility] Operative Report ---
Operative Report Operative Date Sep 13, 2017. Pre-Operative Diagnosis Diverticulitis of the Colon Post-Operative Diagnosis Diverticulitis of the Colon Procedure(s) Performed Cystoscopy with bilateral ureteral catheter placement and knowles placement. Surgeon Corby Estimated Blood Loss 0 Findings No masses or lesions in bladder. Catheter placed without issues or blood. Drains 5 Fr ureteral catheter bilataral to be removed at end of case. 16 Fr Knowles Anesthesia General Complication(s) None Disposition To Dr. Valle's care for main abdominal procedure. Indications Complicated bowel case with need to identify the ureters. Catheters requested bilaterally to assist. Patient consented and agreeable. Description of Procedure Patient was consented and brought back to the operating room. Patient was placed under anesthesia in the supine position and moved to the dorsal lithotomy position. Patient was prepped and draped in the regular sterile fashion. A time out was completed. A 30degree Cystoscope was placed into the bladder and the entire bladder was examined. The UO's were identified. The right, followed by the left, was cannulized with a catheter. Both sides advanced easily and urine was found to be dripping from the end of the 5 fr catheters. The scope was removed. A 16Fr catheter was placed. The 3 catheters were attached to drainage and secured. The patient was cleaned, drapes removed, and care was transferred to Dr. Valle to proceed with the abdominal surgery that is planned. Patient tolerated the procedure well with no complications. I was present and participated in all aspects of the procedure. Catheters may be removed at the end of the case. I attest to the content of the Intraoperative Record and any orders documented therein. Any exceptions are noted below.
--- NOTE | 2017-09-13 09:29 | [facility] Operative Report ---
Operative Report Operative Date Sep 13, 2017. Pre-Operative Diagnosis Diverticulitis of the Colon Post-Operative Diagnosis Diverticulitis of the Colon Procedure(s) Performed Cystoscopy with bilateral ureteral catheter placement and knowles placement. sigmoid colon resection Surgeon Leonard Tavarez Endless Track Vehicle Supervisor Surgeon(s) Joby Lebron ( for Dr burnett) Estimated Blood Loss 0- cysto, 30 cc- colectomy Findings sigmoid diverticulosis Specimens sigmoid colon Drains 5 Fr ureteral catheter bilataral to be removed at end of case. 16 Fr Knowles Anesthesia General Complication(s) None Disposition Recovery Room / PACU Description of Procedure also placed 15 Rd RONI to pelvis I attest to the content of the Intraoperative Record and any orders documented therein. Any exceptions are noted below.
[2017-09-13] MEDS ORDERED: HYDROmorphone INJ 1 MG/ML SYR IV PRN (09:30)
--- NOTE | 2017-09-13 09:51 | OPERATIVE REPORT ---
DATE OF OPERATION: 09/13/2017 NAME OF OPERATION: Open sigmoid colectomy with colorectal anastomosis. PREOPERATIVE DIAGNOSIS: Diverticulitis, diverticulosis. POSTOPERATIVE DIAGNOSIS: Same. STAFF SURGEON: Chiki Valle MD. SUPERVISOR DRY CELL ASSEMBLY: Flaquita Lebron PA-C. ANESTHESIA: General. DESCRIPTION OF PROCEDURE: The patient was brought in the operating room and placed on the operating table in the lithotomy position. She initially underwent stent placement by Dr. Tavarez and then her abdomen and perineum were prepped and draped in usual fashion. Midline incision was made below the umbilicus to the symphysis pubis, entering the abdominal cavity, identifying the sigmoid colon. The colon was redundant but it was relatively easy to mobilize. There was no evidence of abscess. The stents were palpable. The left colon was transected using a EMI 60 stapler and then the mesocolon taken down to the rectosigmoid using both LigaSure and clamping and ligating using 2-0 silk suture. The rectosigmoid was transected and then the specimen sent for routine pathology with the stapled end as proximal. At this point, the ends were prepared for an end-to-end anastomosis. This was performed in 2 layers with a seromuscular layer of 3-0 silk suture and then a mucosal layer of running 2-0 chromic catgut suture. The anastomosis was checked by placing a proctoscope in the rectum and covering the anastomosis with saline, instilling air into the colon with no bubbles noted. At this point, I put on a new gown and gloves and placed a 15 round Chay-Hayes drain down into the pelvis, secured to the skin using 3-0 nylon suture. The abdomen was irrigated with antibiotic solution. The posterior fascia and peritoneum reapproximated using running #1 chromic catgut suture. Then the anterior fascia reapproximated using both running and interrupted #1 PDS suture. Subcutaneous tissue irrigated and then a quarter inch Clayton drain placed, secured to the skin using 4-0 nylon suture and then the skin loosely reapproximated using samara. The drain placed to a bulb, dressing applied, the Russell was left in place and the stents were removed. The patient was transferred to recovery room in stable condition. My dental assistant instructor helped with prepping, draping, retraction, exposing the colon, helping with the anastomosis and then helping with closure of the abdominal cavity. I attest to the content of the Intraoperative Record and any orders documented therein. Any exception s are noted below.
[2017-09-13] MEDS: HYDROmorphone INJ 2 MG/ML SYR/VIAL IV PRN ×4 (10:09→10:29)
[2017-09-13] MEDS: HYDROmorphone INJ 0.5 MG/0.5 ML SYR IV PRN ×2 (10:32→10:38)
[2017-09-13] MEDS ORDERED: NURSING VERBAL MED ORDER ONE (11:00)
[2017-09-13] MEDS ORDERED: NALOXONE HCL 0.4 MG/1 ML VIAL/CARP IV PRN (11:00)
[2017-09-13] MEDS: HYDROmorphone HCL 0.5MG/ML 50 ML CASSETTE IV PRN ×5 (11:01→22:53)
[2017-09-13] MEDS ORDERED: LORAZEPAM INJ 0.5 MG in SYRINGE 0.25 ML IV PRN (11:15)
[2017-09-13] MEDS: SODIUM CHLORIDE 0.9% 1000ML 1,000 ML IV SCH (11:19)
--- NOTE | 2017-09-13 11:24 | Anesthesiology Progress Note ---
Anesthesia Post Op Note Date & Time Sep 13, 2017 at 11:24 Vital Signs Pain Intensity: 5 Vital Signs Past 12 Hours Date Time Temp Pulse Resp B/P (MAP) Pulse Ox O2 Delivery O2 Flow Rate FiO2 09/13/17 11:05 36.7 94 16 105/62 99 Nasal Cannula 3 09/13/17 10:55 95 15 109/61 99 Nasal Cannula 3 09/13/17 10:45 89 20 111/59 96 Nasal Cannula 3 09/13/17 10:35 86 20 130/66 98 Nasal Cannula 2 09/13/17 10:25 81 20 130/70 98 Nasal Cannula 2 09/13/17 10:15 81 20 130/80 100 Room Air 09/13/17 10:05 79 20 127/67 100 Oxymask 10 09/13/17 09:55 79 20 129/71 100 Oxymask 10 09/13/17 09:48 36.4 83 16 126/63 100 Oxymask 10 09/13/17 05:31 36.6 78 18 121/69 96 Room Air Notes Mental Status: alert / awake / arousable, participated in evaluation Pt Amnestic to Procedure: Yes Nausea / Vomiting: adequately controlled Pain: adequately controlled Airway Patency, RR, SpO2: stable & adequate BP & HR: stable & adequate Hydration State: stable & adequate Anesthetic Complications: no major complications apparent
[2017-09-13] MEDS: D5W AND 1/2NSS + 20MEQ KCL 1,000 ML IV SCH ×2 (13:11→20:53)
[2017-09-13] MEDS: CEFOXITIN IV 1,000 MG in DEXTROSE 5% 50ML 50 ML IV SCH ×2 (13:11→19:07)
[2017-09-13] MEDS: KETOROLAC TROMETHAMINE 30 MG/ML VIAL IV. SCH ×2 (13:30→19:41)
[2017-09-13] MEDS: ONDANSETRON INJ 2 MG/ML 2 ML VIAL IV PRN ×2 (13:36→19:45)
--- NOTE | 2017-09-13 14:20 | Medical Consult ---
Consultation Date of Consultation: Sep 13, 2017. Attending Physician: Chiki Valle M.D. History of Present Illness Ms. Michel is a 56 year old woman s/p open sigmoid colectomy with colorectal anastomosis today. She was scheduled for this surgery due to recurrent bouts of diverticulitis, the last being in June when she was admitted to [facility] for diverticulitis with abscess and microperforation. She required a two week course of ertapenem. She also had bilateral ureteral stents placed this morning with Dr. Tavarez. She is unsure why these were placed. Currently she is drowsy but is not having pain. She feels a bit nauseas and received anti emetic from nursing, no emesis. Pmhx: smoker x 44 years quit in June, GERD Family History Mother of complications from scleroderma Father of old age. Social History Smoking Status: Former Smoker Drug Use: none Allergies Coded Allergies: No Known Allergies (Unverified , 09/13/17) Home Medications Active Wellbutrin Sr (Bupropion HCl) 150 Mg Ertab 150 Mg PO BID 30 Days Reported Protonix (Pantoprazole Sodium) 40 Mg Tab 40 Mg PO QAM Current Inpatient Medications Current Inpatient Medications Medications (Trade) Dose Ordered Sig/Melvina Route Start Time Stop Time Status Last Admin Dose Admin Cefoxitin Sodium 2000 mg/Dextrose 60 ml @ 120 mls/hr PREOP IV 09/13/17 06:00 09/14/17 05:59 09/13/17 07:18 120 MLS/HR Lactated Ringer's 1,000 ml @ 15 mls/hr Q24H IV 09/13/17 06:00 09/14/17 05:59 09/13/17 05:48 15 MLS/HR Potassium Chloride/Dextrose/ Sod Cl 1,000 ml @ 125 mls/hr Q8H IV 09/13/17 12:30 10/13/17 09:29 09/13/17 13:11 125 MLS/HR Cefoxitin Sodium 1000 mg/Dextrose 60 ml @ 100 mls/hr Q6H IV 09/13/17 12:30 09/14/17 12:29 09/13/17 13:11 100 MLS/HR Hydromorphone HCl (Dilaudid Inj) 0.5 mg Q3H PRN IV 09/13/17 09:30 2/7/18 09:29 09/13/17 10:38 0.5 MG Hydromorphone HCl (Dilaudid Inj) 1 mg Q3H PRN IV 09/13/17 09:30 09/27/17 09:29 Promethazine HCl 25 mg/Sodium Chloride 51 ml @ 204 mls/hr Q6H PRN IV 09/13/17 09:30 10/13/17 09:29 Ketorolac Tromethamine (Toradol Inj) 30 mg Q6H IV. 09/13/17 14:00 09/14/17 20:01 09/13/17 13:30 30 MG Ondansetron HCl (Zofran Inj) 4 mg Q6H PRN IV 09/13/17 09:30 10/13/17 09:29 09/13/17 13:36 4 MG Naloxone HCl (Narcan Inj) 0.1 mg Q5M PRN IV 09/13/17 11:00 10/13/17 10:59 Hydromorphone HCl (Dilaudid Pest Control Specialist) 25 mg PRN PRN IV 09/13/17 11:00 09/27/17 10:59 09/13/17 11:29 25 MG Sodium Chloride 1,000 ml @ 15 mls/hr Q24H IV 09/13/17 10:46 10/13/17 10:45 Lorazepam 0.5 mg/ Syringe 0.5 ml @ 0.5 mls/min Q6 PRN IV 09/13/17 11:15 10/13/17 11:14 Heparin Sodium (Porcine) (Heparin Sq 5000 Unit/0.5ml) 5,000 unit Q12H SQ 09/14/17 08:00 10/14/17 07:59 Physical Exam Date Time Temp Pulse Resp B/P (MAP) Pulse Ox O2 Delivery O2 Flow Rate FiO2 09/13/17 12:38 72 16 102/67 (79) 99 Nasal Cannula 09/13/17 12:05 36.5 79 16 104/55 (71) 99 Nasal Cannula 4.0 09/13/17 11:30 100 Nasal Cannula 4.0 09/13/17 11:30 100 Nasal Cannula 4.0 09/13/17 11:30 36.6 91 16 110/70 (83) 100 Nasal Cannula 4.0 09/13/17 11:05 36.7 94 16 105/62 99 Nasal Cannula 3 1/24/18 10:55 95 15 109/61 99 Nasal Cannula 3 09/13/17 10:45 89 20 111/59 96 Nasal Cannula 3 09/13/17 10:35 86 20 130/66 98 Nasal Cannula 2 09/13/17 10:25 81 20 130/70 98 Nasal Cannula 2 09/13/17 10:15 81 20 130/80 100 Room Air 09/13/17 10:05 79 20 127/67 100 Oxymask 10 09/13/17 09:55 79 20 129/71 100 Oxymask 10 09/13/17 09:48 36.4 83 16 126/63 100 Oxymask 10 09/13/17 05:31 36.6 78 18 121/69 96 Room Air General: no distress Eyes: normal inspection, PERLL Respiratory: chest non tender, clear to auscultation, normal breath sounds, no respiratory distress, no accessory muscle use Cardiac: regular rate and rhythm, no rub or gallop, no murmur, no edema, no jvd GI/: active bowel sounds, no abd pain or tenderness, soft, non distended, Extremities: normal range of motion, normal strength, non tender Neuro/Psych: alert and oriented x 3, normal mood and affect Skin: normal color, dry, dressing dry and intact Assessment & Plan Ms. Michel is a 56 year old woman post op 09/13 for bilateral ureteral stents as well as open sigmoid colectomy with colorectal anastomosis today. Post op - VSS - monitor for s/s of bleeding/ infection - cbc in am - bowel regimen, dvt prophylaxis per primary team - prp in am - encourage I.S. Hx of tobacco abuse - continue welbutrin Hx GERD - protonix iv push while npo Resident Physician Supervision Note: I was present with the BOARDING KENNEL OR CATTERY OPERATOR Morgan Diaz during the history and exam. I discussed the case with the resident and agree with the findings and plan as documented in the note. Any exceptions or clarifications are listed here: 56 y/o F recent sigmoid diverticulitis with perf - completed 2 wks Ertapenem and then underwent surgical resection with anastomosis. She has minimal pain and no additional complaints post-op OE AAO x 3 S1,2 R CTAB Avoided plapation of surgical site No CCE P: IVF, pain control - PPi continued She received BL ureteral stents prior to the surgery today although she could not tell us why No current acute issues - med will follow daily pending DC Documented By: Keven Penny
[2017-09-14] VITALS (7 sets, daily range): BP systolic 89–102; BP diastolic 50–65; PULSE 67–80; TEMP 37–37.3; O2SAT 90–97
[2017-09-14] MEDS: CEFOXITIN IV 1,000 MG in DEXTROSE 5% 50ML 50 ML IV SCH ×2 (00:06→06:22)
[2017-09-14] MEDS: KETOROLAC TROMETHAMINE 30 MG/ML VIAL IV. SCH ×4 (01:54→20:24)
[2017-09-14] MEDS: ONDANSETRON INJ 2 MG/ML 2 ML VIAL IV PRN ×3 (01:57→20:24)
[2017-09-14] MEDS: D5W AND 1/2NSS + 20MEQ KCL 1,000 ML IV SCH ×3 (04:29→22:39)
--- NOTE | 2017-09-14 06:02 | Surgery Progress Note ---
Surgery Progress Note Date of Service Sep 14, 2017. Subjective pain controlled with TILE CONDUIT LAYER vitals stable Objective Vital Signs: Date Time Temp Pulse Resp B/P (MAP) Pulse Ox O2 Delivery O2 Flow Rate FiO2 09/14/17 00:05 Room Air 09/13/17 23:38 36.9 94 18 104/58 (73) 95 Room Air 09/13/17 19:41 36.8 81 17 106/66 (79) 94 Room Air 09/13/17 19:11 Room Air 09/13/17 16:17 36.7 72 18 99/62 (74) 99 Nasal Cannula 3.0 09/13/17 13:38 72 18 100/61 (74) 99 Nasal Cannula 3.0 09/13/17 12:38 72 16 102/67 (79) 99 Nasal Cannula 09/13/17 12:05 36.5 79 16 104/55 (71) 99 Nasal Cannula 4.0 09/13/17 11:30 100 Nasal Cannula 4.0 09/13/17 11:30 100 Nasal Cannula 4.0 09/13/17 11:30 36.6 91 16 110/70 (83) 100 Nasal Cannula 4.0 09/13/17 11:05 36.7 94 16 105/62 99 Nasal Cannula 3 09/13/17 10:55 95 15 109/61 99 Nasal Cannula 3 09/13/17 10:45 89 20 111/59 96 Nasal Cannula 3 09/13/17 10:35 86 20 130/66 98 Nasal Cannula 2 09/13/17 10:25 81 20 130/70 98 Nasal Cannula 2 09/13/17 10:15 81 20 130/80 100 Room Air 09/13/17 10:05 79 20 127/67 100 Oxymask 10 09/13/17 09:55 79 20 129/71 100 Oxymask 10 09/13/17 09:48 36.4 83 16 126/63 100 Oxymask 10 General Appearance: no apparent distress Respiratory/Chest: no respiratory distress Abdomen: soft Incision(s): drainage (expected, serosang) Laboratory Results: Results Past 24 Hours Test 09/14/17 04:44 09/14/17 05:00 09/14/17 05:30 Range/Units Assessment & Plan 09/14/17- s/p open sigmoid colectomy for h/o diverticulitis. will d/c eleni, aric IV fluids. ambulate. ice only
[2017-09-14] MEDS: PROMETHAZINE HCL INJ 25 MG in SODIUM CHLORIDE 0.9% 50ML 50 ML IV PRN ×2 (06:42→13:34)
[2017-09-14] MEDS: HYDROmorphone HCL 0.5MG/ML 50 ML CASSETTE IV PRN ×3 (07:09→23:07)
[2017-09-14 07:11] LABS: HEMATOCRIT 33.7 % (37-47); HEMOGLOBIN 11.4 g/dL (12.0-16.0); MEAN CELL VOLUME 91.3 fL (80-100); MEAN CORPUSCULAR HEMOGLOBIN 30.9 pg (25-34); MEAN CORPUSCULAR HGB CONC 33.8 g/dl (32-36); MEAN PLATELET VOLUME 9.5 fL (7.4-10.4); PLATELET COUNT 258 K/uL (130-400); RED CELL DISTRIBUTION WIDTH CV 13.3 % (11.5-14.5); RED CELL DISTRIBUTION WIDTH SD 44.4 fL (36.4-46.3); WHITE BLOOD COUNT 7.74 K/uL (4.8-10.8)
[2017-09-14 07:21] LABS: INR 1.2 (0.9-1.1)
--- NOTE | 2017-09-14 07:42 | Progress Note ---
Subjective Date of Service: Sep 14, 2017. Subjective Pt evaluation today including: conversation w/ patient, chart review, lab review 56 yo female s/p sigmoid colectomy. B/l open ended catheters placed by Dr. Tavarez prior to procedure. Russell catheter and catheters removed this morning. Pt has not yet voided. Review of Systems Constitutional: No fever, No chills Respiratory: No shortness of breath Cardiac: No chest pain Abdomen: + nausea, No pain, No vomiting Heme: No abnormal bleeding/bruising Objective Vital Signs Date Time Temp Pulse Resp B/P (MAP) Pulse Ox O2 Delivery O2 Flow Rate FiO2 09/14/17 06:53 37.0 67 16 93/59 (70) 90 Room Air 09/14/17 00:05 Room Air 09/13/17 23:38 36.9 94 18 104/58 (73) 95 Room Air 09/13/17 19:41 36.8 81 17 106/66 (79) 94 Room Air 09/13/17 19:11 Room Air 09/13/17 16:17 36.7 72 18 99/62 (74) 99 Nasal Cannula 3.0 09/13/17 13:38 72 18 100/61 (74) 99 Nasal Cannula 3.0 09/13/17 12:38 72 16 102/67 (79) 99 Nasal Cannula 09/13/17 12:05 36.5 79 16 104/55 (71) 99 Nasal Cannula 4.0 09/13/17 11:30 100 Nasal Cannula 4.0 09/13/17 11:30 100 Nasal Cannula 4.0 09/13/17 11:30 36.6 91 16 110/70 (83) 100 Nasal Cannula 4.0 09/13/17 11:05 36.7 94 16 105/62 99 Nasal Cannula 3 09/13/17 10:55 95 15 109/61 99 Nasal Cannula 3 09/13/17 10:45 89 20 111/59 96 Nasal Cannula 3 09/13/17 10:35 86 20 130/66 98 Nasal Cannula 2 09/13/17 10:25 81 20 130/70 98 Nasal Cannula 2 09/13/17 10:15 81 20 130/80 100 Room Air 09/13/17 10:05 79 20 127/67 100 Oxymask 10 09/13/17 09:55 79 20 129/71 100 Oxymask 10 09/13/17 09:48 36.4 83 16 126/63 100 Oxymask 10 Physical Exam General Appearance: no apparent distress Eyes: normal inspection ENT: hearing grossly normal Neck: no JVD Respiratory/Chest: no respiratory distress, no accessory muscle use Cardiovascular: no JVD Extremities: normal inspection Neurologic/Psychiatric: alert, normal mood/affect, oriented x 3 Skin: normal color Laboratory Results Last 24 Hours Test 09/14/17 06:34 White Blood Count 7.74 K/uL Red Blood Count 3.69 M/uL Hemoglobin 11.4 g/dL Hematocrit 33.7 % Mean Corpuscular Volume 91.3 fL Mean Corpuscular Hemoglobin 30.9 pg Mean Corpuscular Hemoglobin Concent 33.8 g/dl RDW Standard Deviation 44.4 fL RDW Coefficient of Variation 13.3 % Platelet Count 258 K/uL Mean Platelet Volume 9.5 fL Prothrombin Time 12.2 SECONDS Prothromb Time International Ratio 1.2 Assessment and Plan Expect pt to void without issue. No further management at this time. Thanks for allowing us to participate in this pt's care. Recall PRN issues. Pt can f/u outpatient with urology PRN.
[2017-09-14 07:43] LABS: CALCIUM 8.3 mg/dl (8.5-10.1); CREATININE 1.47 mg/dl (0.60-1.20); POTASSIUM 3.6 mmol/L (3.5-5.1)
[2017-09-14 07:44] LABS: PHOSPHORUS 2.4 mg/dl (2.5-4.9)
[2017-09-14] MEDS: HEPARIN SOD 5000 UNIT/0.5 ML CARP SQ SCH ×2 (08:42→21:02)
[2017-09-14] MEDS: SODIUM CHLORIDE 0.9% 1000ML 1,000 ML IV SCH (10:16)
[2017-09-14] MEDS ORDERED: POTASSIUM PHOSPHATE INJ 30 MMOL in SODIUM CHLORIDE 0.9% 500ML 500 ML IV ONE (10:45)
[2017-09-14] MEDS: PANTOprazole INJ 40 MG in SYRINGE 0 ML IV SCH (11:16)
--- NOTE | 2017-09-14 13:21 | Anesthesiology Progress Note ---
Anesthesia Post Op Note Date & Time Sep 14, 2017 at 13:20 Vital Signs Pain Intensity: 4.0 Vital Signs Past 12 Hours Date Time Temp Pulse Resp B/P (MAP) Pulse Ox O2 Delivery O2 Flow Rate FiO2 09/14/17 10:53 37.1 75 16 89/50 (63) 92 Room Air 09/14/17 07:45 90 Room Air 09/14/17 06:53 37.0 67 16 93/59 (70) 90 Room Air Notes Mental Status: alert / awake / arousable, participated in evaluation Pt Amnestic to Procedure: Yes Nausea / Vomiting: adequately controlled Pain: adequately controlled Airway Patency, RR, SpO2: stable & adequate BP & HR: stable & adequate Hydration State: stable & adequate Anesthetic Complications: no major complications apparent
--- NOTE | 2017-09-14 13:37 | Progress Note ---
Subjective Date of Service: Sep 14, 2017. Subjective Pt evaluation today including: conversation w/ patient, physical exam, lab review, review of inpatient medication list Pain: pain controlled with MICROSYSTEMS ENGINEER PO Intake: NPO today Voiding: no voiding problems patient doing well, pain controlled, she has very little appetite, + nauseated appreciate note from Dr. Valle Review of Systems Abdomen: + pain, + nausea All Other Systems: Reviewed and Negative Medications Current Inpatient Medications Medications (Trade) Dose Ordered Sig/Melvina Route Start Time Stop Time Status Last Admin Dose Admin Potassium Chloride/Dextrose/ Sod Cl 1,000 ml @ 100 mls/hr Q10H IV 09/13/17 12:30 10/13/17 09:29 09/14/17 13:08 100 MLS/HR Hydromorphone HCl (Dilaudid Inj) 0.5 mg Q3H PRN IV 09/13/17 09:30 09/27/17 09:29 09/13/17 10:38 0.5 MG Hydromorphone HCl (Dilaudid Inj) 1 mg Q3H PRN IV 09/13/17 09:30 09/27/17 09:29 Promethazine HCl 25 mg/Sodium Chloride 51 ml @ 204 mls/hr Q6H PRN IV 09/13/17 09:30 10/13/17 09:29 09/14/17 06:42 204 MLS/HR Ketorolac Tromethamine (Toradol Inj) 30 mg Q6H IV. 09/13/17 14:00 09/14/17 20:01 09/14/17 08:50 30 MG Ondansetron HCl (Zofran Inj) 4 mg Q6H PRN IV 09/13/17 09:30 10/13/17 09:29 09/14/17 08:56 4 MG Naloxone HCl (Narcan Inj) 0.1 mg Q5M PRN IV 09/13/17 11:00 10/13/17 10:59 Hydromorphone HCl (Dilaudid Certified Tumor Registrar) 25 mg PRN PRN IV 09/13/17 11:00 09/27/17 10:59 09/14/17 07:09 25 MG Sodium Chloride 1,000 ml @ 15 mls/hr Q24H IV 09/13/17 10:46 10/13/17 10:45 Lorazepam 0.5 mg/ Syringe 0.5 ml @ 0.5 mls/min Q6 PRN IV 09/13/17 11:15 10/13/17 11:14 Heparin Sodium (Porcine) (Heparin Sq 5000 Unit/0.5ml) 5,000 unit Q12H SQ 09/14/17 08:00 10/16/17 07:00 09/14/17 08:42 5,000 UNIT Pantoprazole Sodium 40 mg/ Syringe 10 ml @ 5 mls/min DAILY@11 IV 09/14/17 11:00 09/17/17 11:01 09/14/17 11:16 5 MLS/MIN Potassium Phosphate 30 mmol/ Sodium Chloride 510 ml @ 100 mls/hr ONE ONCE IV 09/14/17 10:45 09/14/17 15:50 09/14/17 11:15 100 MLS/HR Bupropion HCl (Wellbutrin-Sr Tab) 150 mg BID PO 09/14/17 21:00 10/14/17 20:59 Objective Vital Signs Date Time Temp Pulse Resp B/P (MAP) Pulse Ox O2 Delivery O2 Flow Rate FiO2 09/14/17 10:53 37.1 75 16 89/50 (63) 92 Room Air 09/14/17 07:45 90 Room Air 09/14/17 06:53 37.0 67 16 93/59 (70) 90 Room Air 09/14/17 00:05 Room Air 09/13/17 23:38 36.9 94 18 104/58 (73) 95 Room Air 09/13/17 19:41 36.8 81 17 106/66 (79) 94 Room Air 09/13/17 19:11 Room Air 09/13/17 16:17 36.7 72 18 99/62 (74) 99 Nasal Cannula 3.0 09/13/17 13:38 72 18 100/61 (74) 99 Nasal Cannula 3.0 Physical Exam General Appearance: WD/WN, no apparent distress Eyes: normal inspection, EOMI, sclerae normal ENT: normal ENT inspection, hearing grossly normal, pharynx normal Neck: supple, no adenopathy, no JVD Respiratory/Chest: chest non-tender, lungs clear, normal breath sounds, no respiratory distress, no accessory muscle use Cardiovascular: regular rate, rhythm, no edema, no gallop, no JVD, no murmur Abdomen: + abnormal bowel sounds, + tenderness Extremities: normal range of motion, non-tender, normal inspection, no pedal edema, no calf tenderness Neurologic/Psychiatric: kiln door repairer II-XII nml as tested, no motor/sensory deficits, alert, normal mood/affect, oriented x 3 Skin: normal color, warm/dry, no rash Lymphatic: no adenopathy Laboratory Results Last 24 Hours Test 09/14/17 06:34 White Blood Count 7.74 K/uL Red Blood Count 3.69 M/uL Hemoglobin 11.4 g/dL Hematocrit 33.7 % Mean Corpuscular Volume 91.3 fL Mean Corpuscular Hemoglobin 30.9 pg Mean Corpuscular Hemoglobin Concent 33.8 g/dl RDW Standard Deviation 44.4 fL RDW Coefficient of Variation 13.3 % Platelet Count 258 K/uL Mean Platelet Volume 9.5 fL Prothrombin Time 12.2 SECONDS Prothromb Time International Ratio 1.2 Sodium Level 138 mmol/L Potassium Level 3.6 mmol/L Chloride Level 105 mmol/L Carbon Dioxide Level 27 mmol/L Anion Gap 6.0 mmol/L Blood Urea Nitrogen 6 mg/dl Creatinine 1.47 mg/dl Est Creatinine Clear Calc Drug Dose 36.9 ml/min Estimated GFR () 45.8 Estimated GFR (Non- 39.5 BUN/Creatinine Ratio 3.7 Random Glucose 102 mg/dl Calcium Level 8.3 mg/dl Phosphorus Level 2.4 mg/dl Magnesium Level 2.0 mg/dl Hepatitis C Antibody Screen NEG Assessment and Plan Ms. Michel is a 56 year old woman post op 09/13 for bilateral ureteral stents as well as open sigmoid colectomy with colorectal anastomosis on 09/13 s/p open sigmoidectomy for diverticulitis pain controlled with MICROSYSTEMS ENGINEER NPO today per surgery, may start clears tomorrow no flatus yet SHARRI: Cr up to 1.47 from baseline of 0.9 continue fluids at 100cc/hr, repeat BMP tomorrow AM Hx of tobacco abuse - continue welbutrin Hx GERD - protonix iv push while npo
[2017-09-14] MEDS: BuPROPion SR 150 MG TABCR PO SCH (20:25)
[2017-09-15 03:41] VITALS: BP 114/72; PULSE 84; TEMP 37; O2SAT 93
[2017-09-15 06:03] LABS: HEMATOCRIT 34.7 % (37-47); HEMOGLOBIN 11.6 g/dL (12.0-16.0); MEAN CORPUSCULAR HEMOGLOBIN 30.8 pg (25-34); MEAN CORPUSCULAR HGB CONC 33.4 g/dl (32-36); MEAN PLATELET VOLUME 9.6 fL (7.4-10.4); PLATELET COUNT 240 K/uL (130-400); RED CELL DISTRIBUTION WIDTH CV 13.4 % (11.5-14.5); RED CELL DISTRIBUTION WIDTH SD 44.9 fL (36.4-46.3)
--- NOTE | 2017-09-15 06:29 | Surgery Progress Note ---
Surgery Progress Note Date of Service Sep 15, 2017. Subjective sitting in chair- feeling ok afeb, alert Objective Vital Signs: Date Time Temp Pulse Resp B/P (MAP) Pulse Ox O2 Delivery O2 Flow Rate FiO2 09/15/17 03:41 37.0 84 16 114/72 (86) 93 Room Air 09/14/17 23:53 Room Air 09/14/17 22:50 37.1 78 16 95/59 (71) 94 Room Air 09/14/17 20:57 37.3 80 18 102/61 (75) 96 Room Air 09/14/17 15:33 37.0 80 18 96/58 (71) 97 Room Air 09/14/17 15:25 Room Air 09/14/17 12:45 99/65 (76) 09/14/17 10:53 37.1 75 16 89/50 (63) 92 Room Air 09/14/17 07:45 90 Room Air 09/14/17 06:53 37.0 67 16 93/59 (70) 90 Room Air General Appearance: no apparent distress Respiratory/Chest: no respiratory distress Abdomen: soft Incision(s): drainage (serous) Laboratory Results: Results Past 24 Hours Test 09/14/17 06:34 09/15/17 05:26 Range/Units White Blood Count 7.74 7.00 4.8-10.8 K/uL Red Blood Count 3.69 3.77 4.2-5.4 M/uL Hemoglobin 11.4 11.6 12.0-16.0 g/dL Hematocrit 33.7 34.7 37-47 % Mean Corpuscular Volume 91.3 92.0 80-100 fL Mean Corpuscular Hemoglobin 30.9 30.8 25-34 pg Mean Corpuscular Hemoglobin Concent 33.8 33.4 32-36 g/dl RDW Standard Deviation 44.4 44.9 36.4-46.3 fL RDW Coefficient of Variation 13.3 13.4 11.5-14.5 % Platelet Count 258 240 130-400 K/uL Mean Platelet Volume 9.5 9.6 7.4-10.4 fL Prothrombin Time 12.2 9.0-12.0 SECONDS Prothromb Time International Ratio 1.2 0.9-1.1 Sodium Level 138 136-145 mmol/L Potassium Level 3.6 3.5-5.1 mmol/L Chloride Level 105 98-107 mmol/L Carbon Dioxide Level 27 21-32 mmol/L Anion Gap 6.0 3-11 mmol/L Blood Urea Nitrogen 6 7-18 mg/dl Creatinine 1.47 0.60-1.20 mg/dl Est Creatinine Clear Calc Drug Dose 36.9 ml/min Estimated GFR () 45.8 Estimated GFR (Non- 39.5 BUN/Creatinine Ratio 3.7 10-20 Random Glucose 102 70-99 mg/dl Calcium Level 8.3 8.5-10.1 mg/dl Phosphorus Level 2.4 2.5-4.9 mg/dl Magnesium Level 2.0 1.8-2.4 mg/dl Hepatitis C Antibody Screen NEG NEG Assessment & Plan 09/15/17- overall stable- ice only today- possible clears tomorrow leave drain for now, ambulate, check labs Dr Heredia on over weekend 09/14/17- s/p open sigmoid colectomy for h/o diverticulitis. will d/c knowles, cont IV fluids. ambulate. ice only 09/14/17- s/p open sigmoid colectomy for h/o diverticulitis. will d/c knowles, cont IV fluids. ambulate. ice only
[2017-09-15 06:49] VITALS: BP 109/69; PULSE 82; TEMP 36.7; O2SAT 93
[2017-09-15 06:52] LABS: CALCIUM 8.4 mg/dl (8.5-10.1); CREATININE 0.91 mg/dl (0.60-1.20); PHOSPHORUS 2.8 mg/dl (2.5-4.9); POTASSIUM 3.8 mmol/L (3.5-5.1)
[2017-09-15] MEDS: HYDROmorphone HCL 0.5MG/ML 50 ML CASSETTE IV PRN ×3 (07:03→23:03)
[2017-09-15 07:15] VITALS: O2SAT 93
[2017-09-15] MEDS: SODIUM CHLORIDE 0.9% 1000ML 1,000 ML IV SCH (08:17)
[2017-09-15] MEDS: D5W AND 1/2NSS + 20MEQ KCL 1,000 ML IV SCH ×2 (08:17→18:47)
[2017-09-15] MEDS: HEPARIN SOD 5000 UNIT/0.5 ML CARP SQ SCH ×2 (08:20→20:27)
[2017-09-15] MEDS: BuPROPion SR 150 MG TABCR PO SCH ×2 (08:22→20:27)
--- NOTE | 2017-09-15 09:52 | Progress Note ---
Subjective Date of Service: Sep 15, 2017. Subjective Pt evaluation today including: conversation w/ patient, conversation w/ family , physical exam, lab review, review of inpatient medication list Pain: controlled with [employer] PO Intake: ice chips Voiding: no voiding problems patient improved since yesterday less pain, no nausea, eating ice chips possible clears tomorrow per surgery reviewed labs, Cr improved to 0.9 with IV fluids Hb stable Review of Systems Abdomen: + pain, + constipation All Other Systems: Reviewed and Negative Medications Current Inpatient Medications Medications (Trade) Dose Ordered Sig/Melvina Route Start Time Stop Time Status Last Admin Dose Admin Potassium Chloride/Dextrose/ Sod Cl 1,000 ml @ 100 mls/hr Q10H IV 09/13/17 12:30 10/13/17 09:29 09/15/17 08:17 100 MLS/HR Hydromorphone HCl (Dilaudid Inj) 0.5 mg Q3H PRN IV 09/13/17 09:30 09/27/17 09:29 09/13/17 10:38 0.5 MG Hydromorphone HCl (Dilaudid Inj) 1 mg Q3H PRN IV 09/13/17 09:30 09/27/17 09:29 Promethazine HCl 25 mg/Sodium Chloride 51 ml @ 204 mls/hr Q6H PRN IV 09/13/17 09:30 10/13/17 09:29 09/14/17 13:34 204 MLS/HR Ondansetron HCl (Zofran Inj) 4 mg Q6H PRN IV 09/13/17 09:30 10/13/17 09:29 09/14/17 20:24 4 MG Naloxone HCl (Narcan Inj) 0.1 mg Q5M PRN IV 09/13/17 11:00 10/13/17 10:59 Hydromorphone HCl (Dilaudid Popcorn Machine Operator) 25 mg PRN PRN IV 09/13/17 11:00 09/27/17 10:59 09/15/17 07:03 25 MG Sodium Chloride 1,000 ml @ 15 mls/hr Q24H IV 09/13/17 10:46 10/13/17 10:45 Lorazepam 0.5 mg/ Syringe 0.5 ml @ 0.5 mls/min Q6 PRN IV 09/13/17 11:15 10/13/17 11:14 Heparin Sodium (Porcine) (Heparin Sq 5000 Unit/0.5ml) 5,000 unit Q12H SQ 09/14/17 08:00 10/16/17 07:00 09/15/17 08:20 5,000 UNIT Pantoprazole Sodium 40 mg/ Syringe 10 ml @ 5 mls/min DAILY@11 IV 09/14/17 11:00 09/17/17 11:01 09/14/17 11:16 5 MLS/MIN Bupropion HCl (Wellbutrin-Sr Tab) 150 mg BID PO 09/14/17 21:00 10/14/17 20:59 09/15/17 08:22 150 MG Objective Vital Signs Date Time Temp Pulse Resp B/P (MAP) Pulse Ox O2 Delivery O2 Flow Rate FiO2 09/15/17 07:15 93 Room Air 09/15/17 06:49 36.7 82 19 109/69 (82) 93 Room Air 09/15/17 03:41 37.0 84 16 114/72 (86) 93 Room Air 09/14/17 23:53 Room Air 09/14/17 22:50 37.1 78 16 95/59 (71) 94 Room Air 09/14/17 20:57 37.3 80 18 102/61 (75) 96 Room Air 09/14/17 15:33 37.0 80 18 96/58 (71) 97 Room Air 09/14/17 15:25 Room Air 09/14/17 12:45 99/65 (76) 09/14/17 10:53 37.1 75 16 89/50 (63) 92 Room Air Physical Exam General Appearance: WD/WN, no apparent distress Eyes: normal inspection, EOMI, sclerae normal ENT: normal ENT inspection, hearing grossly normal, pharynx normal Neck: supple, no adenopathy, no JVD, trachea midline Respiratory/Chest: chest non-tender, lungs clear, normal breath sounds, no respiratory distress, no accessory muscle use Cardiovascular: regular rate, rhythm, no edema, no gallop, no JVD, no murmur Abdomen: soft, no organomegaly, + abnormal bowel sounds, + tenderness (along incision) Extremities: normal range of motion, non-tender, normal inspection, no pedal edema, no calf tenderness, pelvis stable Neurologic/Psychiatric: international representative II-XII nml as tested, no motor/sensory deficits, alert, normal mood/affect, oriented x 3 Skin: normal color, warm/dry, no rash Lymphatic: no adenopathy Laboratory Results Last 24 Hours Test 09/15/17 05:26 White Blood Count 7.00 K/uL Red Blood Count 3.77 M/uL Hemoglobin 11.6 g/dL Hematocrit 34.7 % Mean Corpuscular Volume 92.0 fL Mean Corpuscular Hemoglobin 30.8 pg Mean Corpuscular Hemoglobin Concent 33.4 g/dl RDW Standard Deviation 44.9 fL RDW Coefficient of Variation 13.4 % Platelet Count 240 K/uL Mean Platelet Volume 9.6 fL Sodium Level 139 mmol/L Potassium Level 3.8 mmol/L Chloride Level 108 mmol/L Carbon Dioxide Level 28 mmol/L Anion Gap 4.0 mmol/L Blood Urea Nitrogen 3 mg/dl Creatinine 0.91 mg/dl Est Creatinine Clear Calc Drug Dose 59.6 ml/min Estimated GFR () 81.7 Estimated GFR (Non- 70.5 BUN/Creatinine Ratio 3.5 Random Glucose 96 mg/dl Calcium Level 8.4 mg/dl Phosphorus Level 2.8 mg/dl Magnesium Level 1.9 mg/dl Assessment and Plan Ms. Michel is a 56 year old woman post op 09/13 for bilateral ureteral stents as well as open sigmoid colectomy with colorectal anastomosis on 09/13 s/p open sigmoidectomy for diverticulitis, POD #2 pain controlled with [employer]NAGER ice chips today, possible clears tomorrow per surgery no flatus yet SHARRI: Cr up to 1.47 yesterday, improved to 0.9 today with IV fluids SHARRI resolved, adequate UO Hx of tobacco abuse - continue welbutrin Hx GERD - protonix iv push while npo will sign off at this time as patient is medically stable, further management per surgery on discharge, would resume her prior home medications please call if there are any new medical issues
[2017-09-15] MEDS: PANTOprazole INJ 40 MG in SYRINGE 0 ML IV SCH (11:40)
[2017-09-15 11:57] VITALS: BP 106/66; PULSE 93; TEMP 37.1; O2SAT 96
[2017-09-15 15:10] VITALS: BP 113/73; PULSE 93; TEMP 37.2; O2SAT 93
[2017-09-15] MEDS ORDERED: SODIUM CHLORIDE 0.65% NA SOLN 45 ML (OCEAN) PRN (18:45)
[2017-09-15] MEDS ORDERED: NURSING DECISION MEDICATION ORDER SCH (18:45)
[2017-09-16 00:08] VITALS: BP 104/66; PULSE 97; TEMP 37.1; O2SAT 94
[2017-09-16 03:42] VITALS: BP 92/55; PULSE 89; TEMP 36.7; O2SAT 95
[2017-09-16] MEDS: D5W AND 1/2NSS + 20MEQ KCL 1,000 ML IV SCH ×3 (05:06→23:59)
[2017-09-16 07:55] VITALS: O2SAT 95
[2017-09-16] MEDS: HEPARIN SOD 5000 UNIT/0.5 ML CARP SQ SCH ×2 (07:58→19:41)
[2017-09-16] MEDS: BuPROPion SR 150 MG TABCR PO SCH ×2 (08:56→21:29)
[2017-09-16] MEDS: SODIUM CHLORIDE 0.9% 1000ML 1,000 ML IV SCH (10:46)
--- NOTE | 2017-09-16 11:11 | Surgery Progress Note ---
Surgery Progress Note Date of Service Sep 16, 2017. Subjective Post OP Day: 3 No bowel movement, No flatus, No nausea, No vomiting Feels well Incisional pain only Objective Vital Signs: Date Time Temp Pulse Resp B/P (MAP) Pulse Ox O2 Delivery O2 Flow Rate FiO2 09/16/17 07:55 95 Room Air 09/16/17 03:42 36.7 89 15 92/55 (67) 95 Room Air 09/16/17 00:08 37.1 97 16 104/66 (79) 94 Room Air 09/16/17 00:00 Room Air 09/15/17 15:35 Room Air 09/15/17 15:10 37.2 93 20 113/73 (86) 93 Room Air 09/15/17 11:57 37.1 93 19 106/66 (79) 96 Room Air Physical Exam: RONI drainage (45 cc yesterday, 5 cc last shift, serosanguinous) Abdomen: non distended, soft Incision(s): clean, dry, intact, no erythema Assessment & Plan S/P sigmoid resection Doing well Can start clear liquids today Ambulate
[2017-09-16] MEDS: PANTOprazole INJ 40 MG in SYRINGE 0 ML IV SCH (11:23)
[2017-09-16 15:36] VITALS: BP 131/72; PULSE 76; TEMP 36.8; O2SAT 95
[2017-09-16 19:18] VITALS: BP 125/73; PULSE 94; TEMP 36.6; O2SAT 97
[2017-09-16] MEDS: HYDROmorphone HCL 0.5MG/ML 50 ML CASSETTE IV PRN ×2 (19:37→23:04)
[2017-09-16] MEDS: ONDANSETRON INJ 2 MG/ML 2 ML VIAL IV PRN (21:02)
[2017-09-16 23:43] VITALS: BP 98/60; PULSE 83; TEMP 36.9; O2SAT 95
[2017-09-17 03:55] VITALS: BP 94/59; PULSE 86; TEMP 36.8; O2SAT 96
[2017-09-17] MEDS: ONDANSETRON INJ 2 MG/ML 2 ML VIAL IV PRN ×2 (04:33→12:39)
[2017-09-17] MEDS: HYDROmorphone HCL 0.5MG/ML 50 ML CASSETTE IV PRN ×3 (06:57→23:11)
[2017-09-17 07:10] VITALS: BP 107/67; PULSE 84; TEMP 36.9; O2SAT 96
[2017-09-17] MEDS: HEPARIN SOD 5000 UNIT/0.5 ML CARP SQ SCH ×2 (07:44→20:15)
[2017-09-17] MEDS: BuPROPion SR 150 MG TABCR PO SCH ×2 (07:44→20:15)
[2017-09-17] MEDS: SODIUM CHLORIDE 0.9% 1000ML 1,000 ML IV SCH (10:23)
[2017-09-17] MEDS: D5W AND 1/2NSS + 20MEQ KCL 1,000 ML IV SCH ×2 (10:23→21:35)
[2017-09-17] MEDS: PANTOprazole INJ 40 MG in SYRINGE 0 ML IV SCH (10:24)
[2017-09-17 11:30] VITALS: BP 102/62; PULSE 89; TEMP 36.7; O2SAT 98
--- NOTE | 2017-09-17 11:59 | Surgery Progress Note ---
Surgery Progress Note Date of Service Sep 17, 2017. Subjective Post OP Day: 4 + feeling well, + flatus, + diet (tolerated clear liquids), No bowel movement, No nausea, No vomiting Objective Vital Signs: Date Time Temp Pulse Resp B/P (MAP) Pulse Ox O2 Delivery O2 Flow Rate FiO2 09/17/17 07:45 Room Air 09/17/17 07:10 36.9 84 18 107/67 (80) 96 Room Air 09/17/17 03:55 36.8 86 16 94/59 (71) 96 Room Air 09/17/17 00:10 Room Air 09/16/17 23:43 36.9 83 16 98/60 (73) 95 Room Air 09/16/17 19:50 Room Air 09/16/17 19:18 36.6 94 18 125/73 (90) 97 Room Air 09/16/17 16:00 Room Air 09/16/17 15:36 36.8 76 18 131/72 (91) 95 Room Air Abdomen: normal bowel sounds, non distended, soft Incision(s): clean, dry, intact, no erythema, no drainage Assessment & Plan S/P sigmoid resection Doing well Passing flatus Can advance to full liquids today Ambulate
[2017-09-17 15:23] VITALS: BP 114/74; PULSE 91; TEMP 36.2; O2SAT 95
[2017-09-17 19:14] VITALS: BP 107/67; PULSE 85; TEMP 36.7; O2SAT 96
[2017-09-17 23:25] VITALS: BP 106/54; PULSE 81; TEMP 36.8; O2SAT 96
[2017-09-18 03:33] VITALS: BP 109/69; PULSE 73; TEMP 36.8; O2SAT 96
--- NOTE | 2017-09-18 06:25 | Surgery Progress Note ---
Surgery Progress Note Date of Service Sep 18, 2017. Subjective progressing- ++ flatus on full liquids vitals stable Objective Vital Signs: Date Time Temp Pulse Resp B/P (MAP) Pulse Ox O2 Delivery O2 Flow Rate FiO2 09/18/17 03:33 36.8 73 14 109/69 (82) 96 Room Air 09/17/17 23:25 36.8 81 16 106/54 (71) 96 Room Air 09/17/17 23:15 Room Air 09/17/17 19:14 36.7 85 18 107/67 (80) 96 Room Air 09/17/17 15:35 Room Air 09/17/17 15:23 36.2 91 18 114/74 (87) 95 Room Air 09/17/17 11:30 36.7 89 102/62 (75) 98 Room Air 09/17/17 07:45 Room Air 09/17/17 07:10 36.9 84 18 107/67 (80) 96 Room Air General Appearance: no apparent distress Respiratory/Chest: no respiratory distress Abdomen: soft Incision(s): intact Assessment & Plan 09/18/17- progressing over weekend- tolerating full liquids hep lock IV, low fiber diet, d/c drains- possible d/c tomorrow 09/15/17- overall stable- ice only today- possible clears tomorrow leave drain for now, ambulate, check labs Dr Heredia on over weekend 09/14/17- s/p open sigmoid colectomy for h/o diverticulitis. will d/c knowles, cont IV fluids. ambulate. ice only 09/15/17- overall stable- ice only today- possible clears tomorrow leave drain for now, ambulate, check labs Dr Heredia on over weekend 09/14/17- s/p open sigmoid colectomy for h/o diverticulitis. will d/c knowles, cont IV fluids. ambulate. ice only
[2017-09-18] MEDS ORDERED: HYDROmorphone INJ 0.5 MG/0.5 ML SYR IV PRN (06:30)
[2017-09-18] MEDS ORDERED: HYDROmorphone INJ 1 MG/ML SYR IV PRN (06:30)
[2017-09-18 07:05] VITALS: BP 98/62; PULSE 78; TEMP 36.8; O2SAT 96
[2017-09-18] MEDS: HEPARIN SOD 5000 UNIT/0.5 ML CARP SQ SCH ×2 (08:00→20:00)
[2017-09-18] MEDS: BuPROPion SR 150 MG TABCR PO SCH ×2 (09:23→20:23)
[2017-09-18] MEDS ORDERED: NURSING VERBAL MED ORDER ONE (09:30)
[2017-09-18] MEDS: HYDROCODONE/ACETAMOPHEN 5/325MG TAB PO PRN ×4 (10:19→22:41)
[2017-09-18] MEDS: PANTOprazole SOD 40 MG TAB PO SCH (10:19)
[2017-09-18 15:38] VITALS: BP 111/69; PULSE 89; TEMP 36.7; O2SAT 97
[2017-09-18 23:06] VITALS: BP 112/69; PULSE 71; TEMP 36.8; O2SAT 96
[2017-09-19] MEDS: HYDROCODONE/ACETAMOPHEN 5/325MG TAB PO PRN ×2 (04:42→08:59)
[2017-09-19] MEDS ORDERED: HYDR-5688 PO (05:29)
--- NOTE | 2017-09-19 05:31 | Discharge Instructions ---
Discharge Instructions Date of Service Sep 19, 2017. Admission Reason for Admission: Diverticulitis Of Colon Discharge Discharge Diagnosis / Problem: diverticulitis Discharge Goals Goal(s): Decrease discomfort, Improve function, Improve disease control Activity Recommendations Activity Limitations: as noted below Lifting Limitations: no more than 25 pounds Exercise/Sports Limitations: until after follow-up appointment May Resume Sexual Activity: when tolerated Shower/Bathe: tomorrow Driving or Machine Use: 1 week . Instructions / Follow-Up Instructions / Follow-Up SPECIAL CARE INSTRUCTIONS: * Cover incisions and change daily for comfort/drainage. * May use ibuprofen for pain as tolerated. * Expect some swelling and bruising. Call your doctor if: * Temperature above 101 degrees * Pain not relieved by pain medicine ordered * There is increased drainage or redness from any incision * You have any unanswered questions or concerns [phone]. FOLLOW UP VISIT: If not already scheduled, please call the office for a follow-up visit. for next week- staple removal and checkup OFFICE PHONE NUMBER: Dr. Valle Office Current Hospital Diet Patient's current hospital diet: Low Fiber Diet Discharge Diet Recommended Diet: Regular Diet Procedures Procedures Performed: Cystoscopy with bilateral ureteral catheter placement and knowles placement. sigmoid colon resection Pending Studies Studies pending at discharge: no Medical Emergencies . Who to Call and When: Medical Emergencies: If at any time you feel your situation is an emergency, please call 911 immediately. . Non-Emergent Contact Non-Emergency issues call your: Primary Care Provider, Surgeon . "Provider Documentation" section prepared by Chiki Valle. . VTE Core Measure Inpt VTE Proph given/why not?: Unfractionated heparin SQ, SCD's
--- NOTE | 2017-09-19 07:27 | DISCHARGE SUMMARY ---
PRINCIPAL DIAGNOSIS: Diverticulitis. PROCEDURES: The patient underwent sigmoid colectomy with colorectal anastomosis. HISTORY OF PRESENT ILLNESS: The patient is a 56-year-old female who had been admitted to the hospital with severe diverticulitis. HOSPITAL COURSE: The patient was brought into the hospital on 09/13/2017 for elective sigmoid resection. She was taken to the operating room where she underwent sigmoid resection, which she tolerated very well. She has progressed well in both diet and activity and GI function over the last 4-5 days and is felt stable for discharge home today to be followed in the surgical clinic within 1 week.
[2017-09-19 07:30] VITALS: BP 97/64; PULSE 70; TEMP 36.7; O2SAT 94
[2017-09-19] MEDS: HEPARIN SOD 5000 UNIT/0.5 ML CARP SQ SCH (08:00)
[2017-09-19] MEDS: PANTOprazole SOD 40 MG TAB PO SCH (08:58)
[2017-09-19] MEDS: BuPROPion SR 150 MG TABCR PO SCH (08:58)
[2017-09-19] MEDS: ONDANSETRON INJ 2 MG/ML 2 ML VIAL IV PRN (10:21)
[2017-09-19 11:31] VITALS: BP 97/64; PULSE 70; TEMP 36.7; O2SAT 94
== END 2017-09-19 12:30 | disposition home or self-care (01) | DRG 330 ==
LOC: C.ACU 05:04 → C.MSN 09:36 → ENRESERV 10:58
PROVIDERS: ADMIT Surgery; ATTEND Surgery
PROC: 0DTN0ZZ Resection of Sigmoid Colon, Open Approach (ICD-10-PCS; principal; 2017-09-13 07:00)
PROC: 0T9880Z Drainage of Bilateral Ureters with Drainage Device, Via Natural or Artificial Opening Endoscopic (ICD-10-PCS; 2017-09-13 07:00)
DX: K57.32 Diverticulitis of large intestine without perforation or abscess without bleeding (principal); N17.9 Acute kidney failure, unspecified; K21.9 Gastro-esophageal reflux disease without esophagitis; Z87.891 Personal history of nicotine dependence; Z79.899 Other long term (current) drug therapy